=== PATIENT | female | born 1975 | race Caucasian/White ===

== ENCOUNTER 2017-12-20 16:30 | Inpatient (IN) | payer OTHER ==
--- OUTSIDE RECORDS SUMMARY | 2017-12-20 16:32 | XMS REPORT | Clinical Summary ---
:1975 Author Organization [facility] Address [address] [place] [address] Phone Care Team Providers Name Role Phone Unavailable Primary Care Provider Unavailable Allergies No Known Allergies Current Medications No known medications Active Problems Problem Noted Date Abnormal EKG 09/22/2017 Encounters Date Type Specialty Care Team Description 09/22/2017 Office Visit Sony Sanchez MD ([place]) Abnormal EKG after 12/19/2016 Family History Medical History Relation Name Comments No Known Problem Brother sherif Diabetes Father Hyperlipidemia Father Hypertension Father Kidney cancer Father Diabetes Mother Heart disease Mother Hypercalcemia Sister kimberly Hypertension Sister kimberly No Known Problem Sister mozelle No Known Problem Sister palomo No Known Problem Sister noreen Relation Name Status Comments Brother sherif Alive Father Alive Mother Sister kimberly Alive Sister mozelle Alive Sister palomo Alive Sister noreen Alive Social History Tobacco Use Types Packs/Day Years Used Date Never Smoker Smokeless Tobacco: Never Used Alcohol Use Drinks/Week oz/Week Comments No Sex Assigned at Date Recorded Not on file Last Filed Vital Signs Vital Sign Reading Time Taken Blood Pressure 132/78 09/22/2017 1:04 PM 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 Pulse 94 09/22/2017 1:04 PM 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 Temperature - - Respiratory Rate - - Oxygen Saturation 96% 09/22/2017 1:04 PM 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 Inhaled Oxygen Concentration - - Weight 85.7 kg (189 lb) 09/22/2017 1:04 PM 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 Height - - Body Mass Index - - Plan of Treatment Date Type Specialty Care Team Description 09/22/2018 [facility] Visit [facility] ([place]) [facility] [address] [address] [phone] Health Maintenance Due Date Last Done Comments INFLUENZA VACCINE 06/13/2018 Results ECG 12 lead (09/23/2017 9:26 AM)after 12/19/2016
[2017-12-20] MEDS ORDERED: MORPHINE 4 MG/ML SYR ONE (16:41)
[2017-12-20] MEDS ORDERED: ONDANSETRON 4 MG/2 ML VIAL ONE (16:41)
[2017-12-20] MEDS ORDERED: FENTANYL CITR 100 MCG/2 ML ONE (16:55)
--- NOTE | 2017-12-20 17:44 | RAD REPORT ---
EXAM DESCRIPTION: RAD - Lumbar Spine 3 Views - 12/20/2017 5:38 pm CLINICAL HISTORY: Back pain FINDINGS: The bones are osteoporotic. No fracture is seen. No dislocation is noted. Scoliosis involv es the thoracolumbar spine. The examination is somewhat limited secondary to difficulty with patient positioning
--- NOTE | 2017-12-20 17:46 | RAD REPORT ---
EXAM DESCRIPTION: RAD - Pelvis - 12/20/2017 5:38 pm CLINICAL HISTORY: Pelvic pain status post injury FINDINGS: A comminuted fracture involves the inter trochanteric right femur which involves the lesse r and greater trochanters. Marked angulation is present at the fracture site. No dislocation is seen
--- NOTE | 2017-12-20 17:47 | RAD REPORT ---
EXAM DESCRIPTION: RAD - Femur Right - 12/20/2017 5:38 pm CLINICAL HISTORY: Right leg pain FINDINGS: A comminuted fracture involves the inter trochanteric right femur which involves the lesse r and greater trochanters. Marked angulation is present at the fracture site. No dislocation is seen
--- NOTE | 2017-12-20 17:51 | ER ---
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 aj Patient reports pain to right hip, unable to bare weight.. Transition of care: patient was not received from another setting of care. Onset of symptoms was December 20, 2017. Care prior to arrival: None. 16:34 Method Of Arrival: EMS: [facility] 16:34 Acuity: MADYSON 3 aj Triage Assessment: 16:36 General: Appears in no apparent distress. uncomfortable, Behavior is crying. Pain: aj Complains of pain in right hip. Neuro: Level of Consciousness is awake, alert, obeys commands. Respiratory: Airway is patent Respiratory effort is even, unlabored, Respiratory pattern is regular, symmetrical. Derm: Skin is intact, is healthy with good turgor, Skin is pink, warm \T\ dry. normal. Musculoskeletal: Reports pain in right hip. 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 - Social history:: Smoking status: Patient/guardian denies using tobacco. - Family history:: not pertinent. - Hospitalizations: : No recent hospitalization is reported. Screenin:46 Abuse screen: Denies threats or abuse. Denies injuries from another. Nutritional aj screening: No deficits noted. Tuberculosis screening: No symptoms or risk factors identified. Fall Risk None identified. Assessment: 17:46 Reassessment: See triage. aj Vital Signs: 16:36 BP 126 / 83; Pulse 115; Resp 23; Temp 98.7; Pulse Ox 100% on R/A; Weight 84.82 kg; aj Height 5 ft. 2 in. (157.48 cm); Pain 9/10; 17:46 BP 142 / 89; Pulse 115; Resp 21; Pulse Ox 95% on R/A; aj 18:51 BP 110 / 79; Pulse 98; Resp 17; Pulse Ox 95% on R/A; aj 19:05 BP 118 / 78; Pulse 95; Resp 18; Temp 98.6; Pulse Ox 95% on R/A; Pain 0/10; ak1 16:36 Body Mass Index 34.20 (84.82 kg, 157.48 cm) aj ED Course: 16:34 Patient arrived in ED. aj 16:35 Triage completed. aj 16:36 Clark Hinojosa MD is Attending Physician. rn 16:36 Arm band placed on right wrist. Patient placed in an exam room, on a stretcher, on aj pulse oximetry. 16:50 Inserted saline lock: 22 gauge in left forearm, using aseptic technique. Blood aj collected. 17:36 XRAY Pelvis In Process Unspecified. EDMS 17:36 XRAY Femur RIGHT In Process Unspecified. EDMS 17:36 XRAY Lumbar Spine (3 Views) In Process Unspecified. EDMS 17:45 Kristy Whittaker, NEGRITA is Primary Nurse. aj 17:49 Diego Tripathi DO is Hospitalizing Provider. rn 18:52 Patient has correct armband on for positive identification. Bed in low position. aj 19:08 No provider procedures requiring assistance completed. Patient admitted, IV remains in ak1 place. Administered Medications: 16:50 Drug: morphine 4 mg Route: IVP; Site: left forearm; aj 18:53 Follow up: Response: No change in condition aj 16:50 Drug: Zofran 4 mg Route: IVP; Site: left forearm; aj 18:53 Follow up: Response: No adverse reaction aj 16:57 Drug: fentaNYL (PF) 25 mcg Route: IVP; Site: left forearm; aj 18:52 Follow up: Response: Pain is decreased aj Outcome: 17:50 Decision to Hospitalize by Provider. rn 19:07 Admitted to Tele accompanied by tech, via stretcher, with chart. ak1 19:07 Condition: stable 19:07 Instructed on the need for admit. 20:25 Patient left the ED. ak1 Signatures: Dispatcher [employer] EDMS Kristy Whittaker RN RN aj Nieto, Roman, MD MD rn Krenek, Amber, RN RN ak1 Corrections: (The following items were deleted from the chart) 16:38 16:36 BP 126 / 83; Pulse 115bpm; Resp 23bpm; Pulse Ox 96% RA; Temp 98.7F; 84.82 kg; aj Height 5 ft. 2 in.; BMI: 34.2; Pain 9/10; aj 17:47 17:46 BP 142 / 89; Pulse 122bpm; Resp 21bpm; Pulse Ox 95% RA; aj aj
--- NOTE | 2017-12-20 17:51 | EDPHYS ---
Physician Documentation [facility] Name: Glendy Pierson Age: 42 yrs Sex: Female : 1975 Arrival Date: 12/20/2017 Time: 16:34 Bed 8 Private MD: ED Physician Clark Hinojosa HPI: 12/20 16:44 This 42 yrs old Female presents to ER via EMS with complaints of Hip Pain. rn 16:44 The patient or guardian reports decreased range of motion, an injury, pain. that rn occurred at home, sustained from a fall, the right lower extremity is shortened, right leg is externally rotated. Onset: The symptoms/episode began/occurred just prior to arrival. Modifying factors: The symptoms are alleviated by nothing, the symptoms are aggravated by any movement. The patient has not experienced similar symptoms in the past. Reports in bathroom, normally ambulatory, fall, did not hit head, landed on buttocks, seems like right leg is hurting her. Not on medication/anticoagulation. No LOC. . 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 - Social history:: Smoking status: Patient/guardian denies using tobacco. - Family history:: not pertinent. - Hospitalizations: : No recent hospitalization is reported. ROS: 16:44 Constitutional: Negative for fever, chills, and weight loss, Eyes: Negative for injury, rn pain, redness, and discharge, Neck: Negative for injury, pain, and swelling, Cardiovascular: Negative for chest pain, palpitations, and edema, Respiratory: Negative for shortness of breath, cough, wheezing, and pleuritic chest pain, Abdomen/GI: Negative for abdominal pain, nausea, vomiting, diarrhea, and constipation, Back: Negative for injury and pain, MS/Extremity: Negative for deformity, Neuro: Negative for headache, weakness, numbness, tingling, and seizure. Exam: 16:44 Constitutional: This is a well developed, well nourished patient who is awake, alert, rn appears uncomfortable, bracing to right side of body. Head/Face: Normocephalic, atraumatic. Eyes: Pupils equal round and reactive to light, extra-ocular motions intact. Lids and lashes normal. Conjunctiva and sclera are non-icteric and not injected. Cornea within normal limits. Periorbital areas with no swelling, redness, or edema. Neck: Trachea midline, no thyromegaly or masses palpated, and no cervical lymphadenopathy. Supple, full range of motion without nuchal rigidity, or vertebral point tenderness. No Meningismus. Cardiovascular: Regular rate and rhythm with a normal S1 and S2. No gallops, murmurs, or rubs. Normal PMI, no JVD. No pulse deficits. Respiratory: Lungs have equal breath sounds bilaterally, clear to auscultation and percussion. No rales, rhonchi or wheezes noted. No increased work of breathing, no retractions or nasal flaring. Abdomen/GI: Soft, non-tender, with normal bowel sounds. No distension or tympany. No guarding or rebound. No evidence of tenderness throughout. Back: No spinal tenderness. MS/ Extremity: Pulses equal, no cyanosis. RLE with external rotation and shortened, pain with palpation and movement of right hip. Neuro: Awake, alert, at baseline mentally per mother, moves all 4 extremities and follows commands. Vital Signs: 16:36 BP 126 / 83; Pulse 115; Resp 23; Temp 98.7; Pulse Ox 100% on R/A; Weight 84.82 kg; aj Height 5 ft. 2 in. (157.48 cm); Pain 9/10; 17:46 BP 142 / 89; Pulse 115; Resp 21; Pulse Ox 95% on R/A; aj 18:51 BP 110 / 79; Pulse 98; Resp 17; Pulse Ox 95% on R/A; aj 19:05 BP 118 / 78; Pulse 95; Resp 18; Temp 98.6; Pulse Ox 95% on R/A; Pain 0/10; ak1 16:36 Body Mass Index 34.20 (84.82 kg, 157.48 cm) aj MDM: 16:36 Patient medically screened. rn 17:48 Differential diagnosis: hip fracture, intertrochanteric fracture, femoral neck rn fracture, femoral shaft fracture. Data reviewed: vital signs, nurses notes, radiologic studies, plain films, and as a result, I will admit patient. Counseling: I had a detailed discussion with the patient and/or guardian regarding: the historical points, exam findings, and any diagnostic results supporting the discharge/admit diagnosis, radiology results, the need for further work-up and treatment in the hospital. ED course: Consulted with Dr. Barreto, requested admit to hospitalist and will consult, get hip fixed. . 12/20 17:48 Order name: CBC with Diff rn 12/20 17:48 Order name: Basic Metabolic Panel rn 12/20 17:48 Order name: Protime (+inr) rn 12/20 17:48 Order name: Ptt, Activated rn 12/20 17:48 Order name: Test, Serum rn 12/20 19:58 Order name: T4 Free EDMS 12/20 16:41 Order name: XRAY Pelvis; Complete Time: 17:47 rn 12/20 16:41 Order name: XRAY Femur RIGHT; Complete Time: 17:47 rn 12/20 16:41 Order name: IV Start; Complete Time: 16:50 rn 12/20 16:42 Order name: XRAY Lumbar Spine (3 Views); Complete Time: 17:46 rn 12/20 19:58 Order name: Thyroid Stimulating Hormone EDMS Administered Medications: 16:50 Drug: morphine 4 mg Route: IVP; Site: left forearm; aj 18:53 Follow up: Response: No change in condition aj 16:50 Drug: Zofran 4 mg Route: IVP; Site: left forearm; aj 18:53 Follow up: Response: No adverse reaction aj 16:57 Drug: fentaNYL (PF) 25 mcg Route: IVP; Site: left forearm; aj 18:52 Follow up: Response: Pain is decreased aj Disposition: 12/20/17 17:50 Hospitalization ordered by Diego Tripathi for Inpatient Admission. Preliminary diagnosis is Displaced comminuted fracture of shaft of right femur. - Bed requested for Telemetry/MedSurg (Inpatient). - Status is Inpatient Admission. ak1 - Condition is Stable. - Problem is new. - Symptoms have improved. UTI on Admission? No Signatures: Dispatcher [employer] EDMS Kristy Whittaker RN RN aj Nieto, Roman, MD MD rn Krenek, Amber, RN RN ak1 Abbi Luke RN RN df
[2017-12-20] MEDS ORDERED: LORazepam 2 MG/ML VIAL IV PRN (18:07)
[2017-12-20] MEDS ORDERED: HYDROCODONE/APAP 7.5/325 MG TAB PO PRN (18:07)
[2017-12-20] MEDS ORDERED: ONDANSETRON 4 MG/2 ML VIAL IV PRN (18:07)
[2017-12-20] MEDS ORDERED: ACETAMINOPHEN 500 MG TAB PO PRN (18:07)
--- NOTE | 2017-12-20 18:18 | P.HP ---
Certification for Inpatient Patient admitted to: Inpatient With expected LOS: >2 Midnights Patient will require the following post-hospital care: Rehabilitation Practitioner: I am a practitioner with admitting privileges, knowledge of patient current condition, hospital course, and medical plan of care. Services: Services provided to patient in accordance with Admission requirements found in Title 42 Section 412.3 of the Code of Federal Regulations Patient History Date of Service: 12/20/17 Primary Care Provider: GIGI Balderrama(Dr. Mckinley) Reason for admission: Fall History of Present Illness: 42-year-old female presented emergency room after a fall. The patient has cerebral palsy, newer dermatitis and mental retardation. She is brought in by family after she fell in her bathroom. She landed on her right side. Patient had immediate pain. Patient is able to ambulate normally. She had difficulty walking. In the ER the patient was evaluated. She was found to have a comminuted right femur fracture of the inter trochanteric area involving the lesser and greater trochanter. Pain is controlled. Patient without any major medical problems for treatment. Orthopedics has been consulted. When I saw the patient ER, her sister was at bedside. The sister takes care of her. Patient does not take any medications. Allergies No Known Allergies Allergy (Uncoded 07/23/17 23:12) Unknown Home medications list reviewed: Yes - Past Medical/Surgical History -: Cerebral palsy -: Mental retardation -: Neurodermatitis Past Surgical History: Patient denies surgical history Psychosocial/ Personal History: The patient lives with her sister. She is fully dependent on her sister. - Family History Mother -: Diabetes - Social History Smoking Status: Never smoker Alcohol use: No CD- Drugs: No Caffeine use: Yes Place of Residence: Home Review of Systems General: As per HPI Eyes: Unremarkable ENT: Unremarkable Respiratory: Unremarkable Cardiovascular: Unremarkable Gastrointestinal: Unremarkable Genitourinary: Unremarkable Musculoskeletal: As per HPI Neurological: Unremarkable Lymphatics: Unremarkable Physical Examination - Physical Exam General: Alert, In no apparent distress, Cooperative, Other (Patient with mental retardation) HEENT: Atraumatic, Normocephalic, PERRLA, Other (Dry mucous membranes) Neck: Supple, No Thyromegaly Respiratory: Clear to auscultation bilaterally, Normal air movement Cardiovascular: Normal pulses, Regular rate/rhythm Gastrointestinal: Normal bowel sounds, Soft and benign, Non-distended, No tenderness, No masses, No rebound, No guarding Musculoskeletal: No warmth, Other (Pain to the right hip.) Neurological: Normal speech, Normal strength at 5/5 x4 extr, Normal tone, Other (Patient follows commands with direction from the sister), Abnormal affect ( Patient with mental retardation.) Assessment and Plan - Problems (Diagnosis) (1) Femur fracture Current Visit: Yes Status: Acute Plan: Comminuted intertrochanteric fracture involving lesser and greater trochanter.. Orthopedics has been consulted. Anticipate surgery tomorrow. Will continue with pain control. Patient slightly dehydrated. Will start IV fluids. May provide Marie catheter if needed. Otherwise will continue monitor closely. Patient able to ambulate prior to fracture. Patient would benefit with rehab if needed. Qualifiers: Encounter type: initial encounter Femur location: intertrochanteric Fracture type: closed Fracture alignment: displaced Laterality: right Qualified Code(s): S72.141A - Displaced intertrochanteric fracture of right femur, initial encounter for closed fracture (2) Cerebral palsy Current Visit: Yes Status: Chronic Plan: Overall stable. Will monitor closely. (3) Mental retardation Current Visit: Yes Status: Chronic Plan: Overall stable. She is fully dependent on her sister. Her plans to be at her side. (4) Dehydration Current Visit: Yes Status: Acute Plan: Patient appears dehydrated. Will start IV fluids. Will monitor closely Discharge Plan: Other (Inpatient rehab) Plan to discharge in: Greater than 2 days - Advance Directives Does patient have a Living Will: No Does patient have a Durable POA for Healthcare: No - Code Status/Comfort Care Code Status Assessed: Yes Time Spent Managing Pts Care (In Minutes): 55
[2017-12-20 19:31] LABS: Absolute Lymphocytes (CBC) 1.1 K/uL (0.7-4.9); Absolute Neutrophil 15.6 K/uL (1.8-8.0); Basophils % 0.3 % (0-1.3); Eosinophils % 0.1 % (0-4.4); Hematocrit 42.2 % (36.0-45.0); Lymphocytes % 6.2 % (15.3-44.8); MCH 29.8 pg (27.0-35.0); MCV 92.7 fL (80-100); MPV 9.2 fL (7.6-11.3); Monocytes % 5.4 % (3.3-12.3); RBC Red Blood Cell Count 4.55 M/uL (3.86-4.86)
[2017-12-20 19:35] LABS: BUN Blood Urea Nitrogen 22 mg/dL (6-20); Bicarbonate 26 mEq/L (21-31); Glucose Level 111 mg/dL (65-120); Potassium 3.6 mEq/L (3.6-5.0); Sodium Level 141 mEq/L (135-145)
[2017-12-20 19:57] LABS: Thyroid Stimulating Hormone 2.74 uIU/mL (0.34-5.60)
[2017-12-20 20:00] LABS: Protime INR 1.13
[2017-12-20 20:32] LABS: Blood Morphology Comment NOT SEEN (NOT SEEN); Platelet Estimate ADEQ; Urine White Blood Cell Casts OK
[2017-12-20] MEDS: NA CHLORIDE 0.9% 1,000 ML IV SCH (21:29)
[2017-12-20] MEDS: FENTANYL CITR 100 MCG/2 ML IV PRN (21:31)
[2017-12-21] MEDS: FENTANYL CITR 100 MCG/2 ML IV PRN (04:46)
[2017-12-21 04:57] LABS: Absolute Lymphocytes (CBC) 1.3 K/uL (0.7-4.9); Absolute Monocytes 0.9 K/uL (0.1-1.3); Absolute Neutrophil 6.5 K/uL (1.8-8.0); Basophils % 0.2 % (0-1.3); Hematocrit 33.2 % (36.0-45.0); MCH 30.4 pg (27.0-35.0); MPV 8.3 fL (7.6-11.3); Monocytes % 10.2 % (3.3-12.3); RBC Red Blood Cell Count 3.61 M/uL (3.86-4.86)
[2017-12-21] MEDS: NA CHLORIDE 0.9% 1,000 ML IV SCH (05:07)
[2017-12-21] MEDS: PANTOPRAZOLE 40MG TABLET PO SCH (05:10)
[2017-12-21 05:25] LABS: BUN Blood Urea Nitrogen 18 mg/dL (6-20); Bicarbonate 30 mEq/L (21-31); Glucose Level 113 mg/dL (65-120); Magnesium 1.8 mg/dL (1.8-2.5); Potassium 4.1 mEq/L (3.6-5.0); Sodium Level 144 mEq/L (135-145)
[2017-12-21 05:48] LABS: Urine Appearance CLOUDY; Urine Bilirubin NEGATIVE (NEG); Urine Blood 3+ (NEG); Urine Color YELLOW; Urine Glucose NEGATIVE (NEG); Urine Protein 2+ (NEG); Urine Specific Gravity >=1.030 (1.005-1.030); Urine pH 5.5 (5.0-7.0)
[2017-12-21 05:49] LABS: Urine Microscopic Reflex ORDER UMIC
[2017-12-21 06:13] LABS: Urine Bacteria <20 /HPF (<20); Urine Culture Reflex Order REFLEXED; Urine RBC >50 /HPF (NONE SEEN)
--- NOTE | 2017-12-21 07:55 | RAD REPORT ---
EXAM DESCRIPTION: RAD - Chest Single View - 12/21/2017 7:19 am CLINICAL HISTORY: Preop chest, hip fracture repair pending COMPARISON: July 2017 TECHNIQUE: AP portable chest image was obtained 0709 hours . FINDINGS: Lung volumes are low. No focal lung parenchymal process. No failure or volume overload. He art and vasculature are normal. No measurable pleural effusion and no pneumothorax. No gross bony abn ormality seen. No acute aortic findings suspected. IMPRESSION: No acute cardiopulmonary process.
[2017-12-21] MEDS ORDERED: CEFAZOLIN/SWI 1gm 1 GM/10 ML SYR IV SCH (08:30)
[2017-12-21] MEDS ORDERED: TRANEXAMIC ACID 1,000 MG in NA CHLORIDE 0.9% 50 ML IV SCH (08:30)
[2017-12-21] MEDS ORDERED: PROPOFOL 200 MG/20 ML VIAL IV ONE (09:12)
[2017-12-21] MEDS ORDERED: ROCURONIUM 50 MG/5 ML VIAL IV ONE (09:13)
[2017-12-21] MEDS ORDERED: FENTANYL CITR 100 MCG/2 ML ONE (09:13)
[2017-12-21] MEDS ORDERED: LIDOCAINE 2% MPF 5 ML VIAL ONE (09:14)
[2017-12-21] MEDS ORDERED: ONDANSETRON 4 MG/2 ML VIAL ONE ×2 (09:15→13:08)
[2017-12-21] MEDS ORDERED: MIDAZOLAM HCL 2 MG/2 ML INJ ONE (09:15)
[2017-12-21] MEDS ORDERED: Ringers Lactate 0 ML IV ONE (09:28)
--- NOTE | 2017-12-21 09:30 | P.PN ---
Subjective Date of Service: 12/21/17 Primary Care Provider: GIGI Balderrama(Dr. Mckinley) Chief Complaint: Fall Subjective: Doing well Physical Examination - Vital Signs Temperature: 98.2 F Blood Pressure: 114/50 Pulse: 91 Respirations: 16 Pulse Ox (%): 96 - Physical Exam General: Alert, Cooperative HEENT: Atraumatic Neck: Supple Respiratory: Clear to auscultation bilaterally, Normal air movement Cardiovascular: Normal pulses, Regular rate/rhythm Gastrointestinal: Normal bowel sounds, Soft and benign, Non-distended, No tenderness, No masses, No rebound, No guarding Musculoskeletal: No tenderness, No warmth - Studies Laboratory Data (last 24 hrs) 12/20/17 17:00: Sodium 141, Potassium 3.6, BUN 22 H, Creatinine 0.65, Glucose 111 12/20/17 17:00: WBC 17.7 H, Hgb 13.6, Hct 42.2, Plt Count 284 Medications List Reviewed: Yes Assessment & Plan - Problems (Diagnosis) (1) Femur fracture Onset Date: 12/21/17 Current Visit: Yes Status: Acute Plan: Comminuted intertrochanteric fracture involving lesser and greater trochanter. Case discussed with orthopedics. Surgery planned for today. Family desires to take patient home at discharge. Will see how she progresses with physical therapy tomorrow. Qualifiers: Encounter type: initial encounter Femur location: intertrochanteric Fracture type: closed Fracture alignment: displaced Laterality: right Qualified Code(s): S72.141A - Displaced intertrochanteric fracture of right femur, initial encounter for closed fracture (2) Cerebral palsy Onset Date: 12/21/17 Current Visit: Yes Status: Chronic Plan: Overall stable. Will monitor closely. (3) Mental retardation Onset Date: 12/21/17 Current Visit: Yes Status: Chronic Plan: Overall stable. She is fully dependent on her sister. Her plans to be at her side. (4) Dehydration Onset Date: 12/21/17 Current Visit: Yes Status: Acute Plan: Patient appears dehydrated. Continue with IV fluids. Discharge Plan: Home Plan to discharge in: Greater than 2 days Time Spent Managing Pts Care (In Minutes): 55
[2017-12-21] MEDS ORDERED: Ringers Lactate 1,000 ML IV ONE (09:32)
[2017-12-21] MEDS ORDERED: CEFAZOLIN/SWI 1gm 1 GM/10 ML SYR ONE (09:42)
[2017-12-21] MEDS: NACHLORIDE 0.45% 1,000 ML IV SCH ×2 (10:00→21:08)
[2017-12-21] MEDS ORDERED: Phenylephrine HCl 10 MG/ML 1 ML VIAL ONE (10:29)
[2017-12-21] MEDS: BUPIVACA 0.25%/EPI 0.0005%/PF 30 ML VIAL ONE ×2 (10:37→12:14)
--- NOTE | 2017-12-21 11:55 | CON ---
Reason For Consultation: Comminuted right intertrochanteric hip fracture. History Of Present Illness: This is a 42-year-old female with cerebral palsy, age 42, fell in her ba throom, suffering impact on the right hip and was brought to the [facility] mergency Department. Her x-ray has revealed a comminuted proximal femur fracture of the intertrochan teric subtrochanteric area of the right lower extremity. The patient has mental retardation and cere bral palsy and is largely uncooperative with directions. She is cared for at home by her family, [facility] includes 2 sisters that are RNs. She has been able to ambulate normally in the past and was unabl e to ambulate after her fall. She has been admitted and is at bedrest and comfortable with pain medi cations, although she has positioned the right lower extremity in external rotation with knee flexion , right foot under left thigh. Allergies: NO KNOWN ALLERGIES. Medications: None. Past Medical And Surgical History: Cerebral palsy, mental retardation, neurodermatitis. There has b een no previous surgical history. The patient lives with her sister and is fully dependent on her care. Family History: Mother has diabetes. Social History: The patient does not use alcohol or tobacco. She does use caffeine. Review of Systems: General: Well-nourished, well-developed 42-year-old female. Eyes: Without discharge or conjunctivitis. ENT: Unremarkable. Respiratory: Normal respiratory movement. No history of problems. Cardiovascular: Unremarkable. Gastrointestinal: Unremarkable. Genitourinary: Unremarkable. Musculoskeletal: As per HPI. Neurological: Unremarkable. Lymphatics: Unremarkable. Physical Examination: General: This is a well-nourished, well-developed 42-year-old female, somewhat somnolent with pain m edication recently given certainly in no apparent distress at the present time. HEENT: Atraumatic, normocephalic. Neck: Supple. Nontender to palpation. Respiratory: Normal respiratory movements. Clear to auscultation bilaterally. Cardiovascular: Normal pulses. Regular rate and rhythm. Gastrointestinal: Soft, nondistended. No tenderness. Normal bowel sounds. Musculoskeletal : The right foot has normal movement. Dorsal pedis pulses somewhat thready but pres ent. Capillary refill is brisk. The right lower extremity is positioned and external rotation with the right foot resting under the left thigh. Genital/Rectal: Exams are deferred. Assessment: Right proximal femur fracture, intertrochanteric with subtrochanteric extension. The fr acture is moderately comminuted. The patient is n.p.o. in preparation for surgery. Plan: The patient will be taken to surgery for intramedullary nail fixation, right proximal femur. The family is made aware of risks and benefits with all questions answered. They have elected to pro ceed with intramedullary nail fixation, right proximal femur intertrochanteric subtrochanteric fractu re. TENA/STEPHANY Voice ID: [id number] Report ID: [id number]
--- NOTE | 2017-12-21 12:29 | RAD REPORT ---
EXAM DESCRIPTION: RAD - Hip In Or - 12/21/2017 12:24 pm FINDINGS: Right hip fluoroscopy performed. Multiple portable C-arm views were obtained during fluoroscopic assisted placement of fracture fixati on hardware. No suspicious or unexpected finding.
[2017-12-21] MEDS ORDERED: KETOROLAC 30 MG/ML INJ ONE (12:57)
[2017-12-21] MEDS ORDERED: MEPERIDINE HCL 25 MG/0.5 ML ONE (13:05)
--- NOTE | 2017-12-21 13:08 | P.BOP ---
Preoperative diagnosis: RIGHT PROX FEMUR IT FRACTURE, COMMINUTED Postoperative diagnosis: SAME Primary procedure: IM NAIL FIXATION RIGHT HIP PROX. FEMUR IT FRACTURE Sales Support Rep: Ki Barreto Estimated blood loss: 150 mL Specimen: NONE Findings: COMMINUTED INTERTROCH FX RIGHT HIP Anesthesia: General Complications: None Drain(s): Urinary catheter Implants: AFFIXUS IM NAIL 130* [id number];LAG 10.5x90mm;AR SCREW 75mm Fluids & blood products: DISTAL INTERLOCK [id number]; INJ 0.25%MARCAINE 30mL w /EPI Transferred to: Recovery Room Condition: Good
[2017-12-21 13:14] LABS: Hematocrit 34.2 % (36.0-45.0)
[2017-12-21] MEDS ORDERED: HYDROCODONE/APAP 7.5/325 MG TAB PO PRN (13:50)
[2017-12-22 04:14] LABS: Absolute Lymphocytes (CBC) 1.6 K/uL (0.7-4.9); Absolute Monocytes 0.8 K/uL (0.1-1.3); Absolute Neutrophil 5.2 K/uL (1.8-8.0); Basophils % 0.3 % (0-1.3); Eosinophils % 0.3 % (0-4.4); Hematocrit 25.2 % (36.0-45.0); Lymphocytes % 21.5 % (15.3-44.8); MCH 30.6 pg (27.0-35.0); MCV 92.9 fL (80-100); MPV 8.2 fL (7.6-11.3); Monocytes % 9.8 % (3.3-12.3); RBC Red Blood Cell Count 2.71 M/uL (3.86-4.86)
[2017-12-22 05:03] LABS: BUN Blood Urea Nitrogen 14 mg/dL (6-20); Bicarbonate 30 mEq/L (21-31); Glucose Level 101 mg/dL (65-120); Magnesium 1.6 mg/dL (1.8-2.5); Potassium 4.1 mEq/L (3.6-5.0); Sodium Level 137 mEq/L (135-145)
[2017-12-22] MEDS ORDERED: MAGNESIUM SULFATE 1 gm IVPB 1 GM/100 ML BAG IV ONE (05:47)
[2017-12-22] MEDS: PANTOPRAZOLE 40MG TABLET PO SCH (06:16)
[2017-12-22] MEDS: TRAMADOL HCL 50 MG TAB PO PRN (06:16)
[2017-12-22] MEDS ORDERED: NA CHLORIDE 0.9% 500 ML IV ONE (06:52)
[2017-12-22] MEDS ORDERED: LACTULOSE 20 GM/30 ML UCUP PO PRN (06:57)
[2017-12-22] MEDS ORDERED: RIVAROXABAN 10 MG TABLET PO SCH (09:00)
[2017-12-22] MEDS ORDERED: NA CHLORIDE 0.9% 500 ML ONE (09:02)
[2017-12-22] MEDS: DOCUSATE NA 100 MG CAP PO SCH (09:06)
--- NOTE | 2017-12-22 09:31 | P.PN ---
Subjective Date of Service: 12/22/17 Primary Care Provider: GIGI Balderrama(Dr. Mckinley) Chief Complaint: Fall Subjective: Other (Patient with pain today. Pain medication is causing some hypotension. Patient does not appear in any distress. Sister at bedside. No significant shortness of breath, nausea or vomiting.) Physical Examination - Vital Signs Temperature: 98.2 F Blood Pressure: 85/50 Pulse: 98 Respirations: 16 Pulse Ox (%): 94 - Physical Exam General: Alert, In no apparent distress, Cooperative HEENT: Atraumatic Neck: Supple Respiratory: Clear to auscultation bilaterally, Normal air movement Cardiovascular: Normal pulses, Regular rate/rhythm Gastrointestinal: Normal bowel sounds, Soft and benign, Non-distended, No masses , No rebound, No guarding Musculoskeletal: No tenderness, No warmth, Other (No erythema noted to the right hip region. Bandage in place) Neurological: Normal speech, Normal strength at 5/5 x4 extr, Normal tone, Other (Patient with mental retardation) - Studies Medications List Reviewed: Yes Assessment & Plan - Problems (Diagnosis) (1) Femur fracture Onset Date: 12/21/17 Current Visit: Yes Status: Acute Plan: Comminuted intertrochanteric fracture involving lesser and greater trochanter. Orthopedic Surgery was done yesterday. Patient seems to have tolerated surgery well. Blood pressure low today likely from pain medication. Will decrease hydrocodone. Will provide fluid boluses this morning and monitor blood pressure closely. Hemoglobin was low. Will recheck. May need to give transfusion if hemoglobin less than 7.0. Will monitor for any changes. May need to hold physical therapy today until blood pressures are better controlled. Will discontinue Xarelto and give Lovenox instead. Will discuss with Orthopedic surgery Qualifiers: Encounter type: initial encounter Femur location: intertrochanteric Fracture type: closed Fracture alignment: displaced Laterality: right Qualified Code(s): S72.141A - Displaced intertrochanteric fracture of right femur, initial encounter for closed fracture (2) Cerebral palsy Onset Date: 12/21/17 Current Visit: Yes Status: Chronic Plan: Overall stable. Will monitor closely. (3) Mental retardation Onset Date: 12/21/17 Current Visit: Yes Status: Chronic Plan: Overall stable. She is fully dependent on her sister. Sister at bedside (4) Dehydration Onset Date: 12/21/17 Current Visit: Yes Status: Acute Plan: Patient appears dehydrated. Will provide fluid boluses today to maintain blood pressure. Will continue to monitor closely. Will try to maintain blood pressures above 100 systolic. Patient usually has blood pressures around 100/ 70. Patient also with anemia. Patient may require transfusion as stated above. Will continue with above plan of care. (5) Anemia Current Visit: Yes Status: Acute Plan: Patient with anemia. Patient postsurgery. Will check iron and B12 studies Will monitor hemoglobin. May need transfusion if hemoglobin less than 7.0. Anti coagulation medication adjusted. Qualifiers: Anemia type: other cause (6) Hypomagnesemia Current Visit: Yes Status: Acute Plan: Will monitor and replace appropriately. Replacement protocol in place. Discharge Plan: Home Plan to discharge in: 72 Hours Time Spent Managing Pts Care (In Minutes): 55
[2017-12-22] MEDS: NACHLORIDE 0.45% 1,000 ML IV SCH ×3 (12:40→21:48)
[2017-12-22 13:28] LABS: Ferritin 120.8 ng/ml (11.0-306.8)
[2017-12-22] MEDS: SOD FERRIC GLUC COMPLX/SUCROSE 125 MG in NA CHLORIDE 0.9% 100 ML IV SCH (16:00)
[2017-12-22] MEDS: ENOXAPARIN 40 MG/0.4 ML SQ SCH (16:17)
[2017-12-22] MEDS: HYDROCODONE/APAP 5/325 MG TAB PO PRN ×2 (17:09→23:02)
--- NOTE | 2017-12-22 21:06 | CON ---
Date of Consultation: 12/22/2017 Reason For Consult: Dehydration, hypertension. History Of Present Illness: Ms. Pierson is a 42-year-old female who has history of cerebral palsy, ment al retardation, who presented to [facility] on the 20 of December after she had a fall in her bathroom, moving back, on the right hip. She was noted to have comminuted proximal femur fracture of the intertrochanteric and subtrochanteric area of the right lower extremity. She underwent intramed ullary nail fixation of the right proximal femur and nephrology has been consulted for management of hypotension and dehydration. The patient has been started on IV fluids since the time of admission. Blood pressure has been running low on the lower side in the 80s. She remains on normal saline at 7 5 cc an hour. Past Medical History: Significant for history of mental retardation, cerebral palsy, and neurodermat itis. Past Surgical History: None. Most recently a right femur fracture and nail fixation. Social History: Lives with her sister. Dependent on ADLs. Review of Systems: Could not be obtained. Physical Examination: Vital Signs: At this time are showing temperature of 97.8, pulse rate of 98, respiratory rate of 16, and blood pressure 105/45. General: She appears in no acute distress. Lungs: Clear. Abdomen: Soft. Extremities: Right hip with incision noted. No evidence of any drainage or erythema or rash noted. Laboratory Data: Showing stable creatinine and electrolytes are also stable. Transferrin saturation is down to 7.6, and iron levels are also low. Current Medications: Include normal saline at 75 cc an hour. Tylenol as needed for pain. Fentanyl p.r.n., hydrocodone p.r.n., lorazepam, pantoprazole, and tramadol. Impression: 1.Hypotension secondary to pain and also from the pain medications. Pain medications need to be giv en cautiously. Also possibly would benefit from getting blood transfusion to improve her anemia. 2.Anemia secondary to blood loss and iron deficiency. We will go ahead and give her a few doses of Ferrlecit while she remains in the hospital to improve her anemia and to avoid blood transfusion. Plan: Overall, the patient is doing okay. I agree with continuing the fluids and minimize use of pa in medications as much as we can. Continue Physical therapy and Occupational therapy and ordered a F errlecit to maintain her anemia levels and to prevent further drop in her hemoglobin. Plan was discu ssed with the patient's family at bedside and as well as with Dr. Tripathi. RADHA/STEPHANY Voice ID: [id number] Report ID: [id number]
[2017-12-23 04:25] LABS: Absolute Lymphocytes (CBC) 1.7 K/uL (0.7-4.9); Absolute Monocytes 0.6 K/uL (0.1-1.3); Absolute Neutrophil 3.9 K/uL (1.8-8.0); Basophils % 0.4 % (0-1.3); Eosinophils % 0.3 % (0-4.4); Hematocrit 23.3 % (36.0-45.0); MCH 30.5 pg (27.0-35.0); MCV 92.3 fL (80-100); Monocytes % 9.9 % (3.3-12.3); RBC Red Blood Cell Count 2.53 M/uL (3.86-4.86)
[2017-12-23 04:46] LABS: BUN Blood Urea Nitrogen 7 mg/dL (6-20); Bicarbonate 30 mEq/L (21-31); Glucose Level 94 mg/dL (65-120); Magnesium 1.8 mg/dL (1.8-2.5); Potassium 3.9 mEq/L (3.6-5.0); Sodium Level 138 mEq/L (135-145)
[2017-12-23] MEDS: HYDROCODONE/APAP 5/325 MG TAB PO PRN ×2 (05:07→18:08)
[2017-12-23] MEDS: PANTOPRAZOLE 40MG TABLET PO SCH (05:07)
[2017-12-23] MEDS ORDERED: MAGNESIUM SULFATE 1 gm IVPB 1 GM/100 ML BAG IV ONE (05:27)
[2017-12-23] MEDS ORDERED: POTASSIUM 25 MEQ EFFERV TAB PO ONE (05:29)
[2017-12-23] MEDS: DOCUSATE NA 100 MG CAP PO SCH (08:44)
[2017-12-23] MEDS: SOD FERRIC GLUC COMPLX/SUCROSE 125 MG in NA CHLORIDE 0.9% 100 ML IV SCH (08:46)
[2017-12-23] MEDS ORDERED: CYANOCOBALAMIN 1000MCG/ML INJ IM SCH (09:00)
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
--- NOTE | 2017-12-23 10:26 | P.PN ---
Subjective Date of Service: 12/23/17 Primary Care Provider: GIGI Balderrama(Dr. Mckinley) Chief Complaint: Fall Subjective: Improving (Patient doing better this morning. Pain seems to be better controlled. Patient with mild pain to the right knee) Physical Examination - Vital Signs Temperature: 97.9 F Blood Pressure: 90/58 Pulse: 88 Respirations: 16 Pulse Ox (%): 95 - Physical Exam General: Alert, In no apparent distress HEENT: Atraumatic Neck: Supple Respiratory: Clear to auscultation bilaterally, Normal air movement Cardiovascular: Normal pulses, Regular rate/rhythm Gastrointestinal: Normal bowel sounds, Soft and benign, Non-distended Musculoskeletal: No tenderness, No warmth Integumentary: Other (Right knee appears slightly swollen but no significant erythema noted. Bandages in place to the right femur area) Neurological: Normal speech, Normal strength at 5/5 x4 extr, Normal tone - Studies Medications List Reviewed: Yes Assessment & Plan - Problems (Diagnosis) (1) Femur fracture Onset Date: 12/21/17 Current Visit: Yes Status: Acute Plan: Comminuted intertrochanteric fracture involving lesser and greater trochanter. Patient is postsurgery. Pain seems to be well controlled. Will continue with pain control medication. Patient was anemic yesterday. Patient found to be iron and B12 deficient. Patient now on IV iron infusion along with B12 supplementation. Will continue to monitor hemoglobin. If less than 7 will transfuse. Patient on DVT prophylaxis-Lovenox. Will discuss with orthopedics. Will have physical therapy evaluate ambulation. Social work to help with needs at home. Family wants to take patient home at discharge when ready. Patient may require 2-3 more days of therapy in the hospital. Qualifiers: Encounter type: initial encounter Femur location: intertrochanteric Fracture type: closed Fracture alignment: displaced Laterality: right Qualified Code(s): S72.141A - Displaced intertrochanteric fracture of right femur, initial encounter for closed fracture (2) Cerebral palsy Onset Date: 12/21/17 Current Visit: Yes Status: Chronic Plan: Overall stable. Will monitor closely. (3) Mental retardation Onset Date: 12/21/17 Current Visit: Yes Status: Chronic Plan: Overall stable. She is fully dependent on her sister. Sister at bedside (4) Dehydration Onset Date: 12/21/17 Current Visit: Yes Status: Acute Plan: Patient given IV fluid boluses yesterday. Will continue to monitor closely. Blood pressure stable. Continue with IV fluids. (5) Anemia Current Visit: Yes Status: Acute Plan: Patient with anemia. Patient postsurgery. Patient found to have iron and B12 deficiency. Patient started on iron infusion along with B12 supplementation. Will continue to monitor hemoglobin. Patient may require blood transfusion if hemoglobin less than 7.0. Patient on Lovenox for DVT prophylaxis. Sister reports family history of iron deficiency anemia. Qualifiers: Anemia type: other cause (6) Hypomagnesemia Current Visit: Yes Status: Acute Plan: Will monitor and replace appropriately. Replacement protocol in place. Discharge Plan: Home Plan to discharge in: 72 Hours Time Spent Managing Pts Care (In Minutes): 55
[2017-12-23 12:46] LABS: Hematocrit 27.6 % (36.0-45.0)
--- NOTE | 2017-12-23 14:10 | P.PN ---
Date of Service: 12/22/17 (POD#1) S: PATIENT RESTING IN BED. RESPONDS TO SISTER'S DIRECTIONS. NO ADVERSE PAIN BEHAVIOR. TOLERATES GENTLE EXAM. O: HYPOTENSIVE THIS AM. POSSIBLE REACTION TO NORCO TAB. PATIENT WAS TACHYCARDIC FOR 1-1/2 HR AFTER ARRIVAL IN PACU. HGB 11.1 POST OP, 8.3 THIS A.M. REPEAT HGB STABLE AT NOON. LITTLE BLOOD LOST AT SURGERY WITH 3 SMALL INCISIONS AND USE OF I.V. TRANEXAMIC ACID, 1 gm AT INCISION AND 2ND gm DURING CLOSURE. REHYDRATION LIKELY REASON FOR DROP IN HGB. NV EXAM INTACT. AQUACEL BANDAGES CLEAN DRY AND INTACT WITH MINIMAL DRAINAGE. KIMI'S SIGN NEGATIVE. PATIENT RESPONDS WITH AGITATION TO MOVEMENT OF RLE. LIMITING PT OPPORTUNITY TO WORK ON TRANSFERS. A: PATIENT MAKING SLOW PROGRESS. LIMITING PATIENT TO TOE-TOUCH ONLY WILL REQUIRE COOPERATION AND VIGOROUS USE OF LLE. P: FAMILY STRONGLY IN FAVOR OF H.H. CARE INSTEAD OF REHAB OR SNU. SISTER IS R.N. USED TO WORKING WITH C.P. PATIENTS. SHE IS LISTING NEEDS FOR HOME CARE ALREADY. CONTINUE TO MONITOR HGB.
--- NOTE | 2017-12-23 14:59 | RAD REPORT ---
EXAM DESCRIPTION: RAD - Knee Right 2 View - 12/23/2017 2:41 pm CLINICAL HISTORY: Knee pain, recent right femur surgery COMPARISON: None. FINDINGS: No fracture, dislocation or periosteal reaction.No measurable joint effusion. Slight narro wing of the lateral compartment noted with small marginal spurs. Surgical hardware is present in the distal femur. No associated acute bone or hardware finding. Skin claire are seen laterally from plac ement of the stabilization screw. IMPRESSION: Mild degenerative change lateral compartment of the knee. No acute bone or joint finding at the knee.
[2017-12-23] MEDS: ENOXAPARIN 40 MG/0.4 ML SQ SCH (17:23)
[2017-12-23] MEDS: NACHLORIDE 0.45% 1,000 ML IV SCH (17:24)
--- NOTE | 2017-12-23 18:41 | P.PN ---
Date of Service: 12/23/17 (POD#2) S: PATIENT RESTING IN BED ON RIGHT SIDE WITH A PILLOW BETWEEN THE KNEES. PATIENT HAS BEEN ABLE TO FOLLOW INSTRUCTIONS TO SOME DEGREE TO SIT FOR 15 MINUTES ON SIDE OF BED. O: MILDLY HYPOTENSIVE THIS AM. PAIN HAS BEEN CONTROLLED WITH 2 OR 3 NORCO 5/ DAY. HGB 7.7 THIS A.M. REPEAT HGB AT NOON 8.9. NV EXAM INTACT. AQUACEL BANDAGES CLEAN DRY AND INTACT WITH MINIMAL DRAINAGE. KIMI'S SIGN NEGATIVE. PATIENT ALLOWS EXAMINATION OF RIGHT KNEE AND ANKLE. RIGHT ANKLE HAS NO SIGNIFICANT SWELLING AND NO TENDERNESS TO PALPATION. PATIENT TOLERATES ACTIVE AND PASSIVE RANGE OF MOTION FOR THE ANKLE. EXAM OF THE RIGHT KNEE SHOWS NO PALPABLE EFFUSION , PATELLA IS STABLE, LIGAMENTS STABLE TO STRESS TESTING. FEMUR FILMS DID NOT ILLUSTRATE JOINT SPACE OR TIBIAL PLATEAU. WILL REQUEST AP AND LATERAL VIEWS OFTHE RIGHT KNEE. A: PATIENT STILL MAKING SLOW PROGRESS. PAIN CONTROL IS IMPROVING AND SHOULD IMPROVE DRAMATICALLY DAY BY DAY. PATIENT IS DEMONSTRATING ABILITY TO FOLLOW INSTRUCTIONS ON OCCASION THAT MAY HELP WITH TRANSFERS P: FAMILY STILL STRONGLY IN FAVOR OF H.H. CARE. CONTINUE TO MONITOR HGB.
--- NOTE | 2017-12-23 21:59 | P.PN ---
Date of Service: 12/23/17 Vital Signs Temp Pulse Resp BP Pulse Ox 97.9 F 98 H 18 111/61 94 12/23/17 20:00 12/23/17 20:00 12/23/17 20:00 12/23/17 20:00 12/23/17 20:00 Medications Acetaminophen (Tylenol -Extra Strength) 500 mg PO Q4HP PRN PRN Reason: [id number] Stop: 01/19/18 18:08 Last Admin: 12/23/17 11:01 Dose: 500 mg Hydrocodone Bitart/Acetaminophen (Vandiver 5/325) 1 tab PO Q6H PRN PRN Reason: PAIN MODERATE TO SEVERE Stop: 01/21/18 06:52 Last Admin: 12/23/17 18:08 Dose: 1 tab Cholecalciferol (Vitamin D 5,000 Iu Cap) 5,000 unit PO DAILY [facility] Stop: 01/23/18 09:01 Cyanocobalamin (B12 Injection) 1,000 mcg IM Q7D@0900 [facility] Stop: 01/22/18 09:01 Last Admin: 12/23/17 08:44 Dose: 1,000 mcg Cyanocobalamin (B12 Injection) 1,000 mcg SQ DAILY [facility] Stop: 12/27/17 09:01 Docusate Sodium (Colace Cap) 100 mg PO DAILY [facility] Stop: 01/21/18 09:01 Last Admin: 12/23/17 08:44 Dose: 100 mg Enoxaparin Sodium (Lovenox 40 Mg Inj) 40 mg SQ DAILY 5 PM [facility] Stop: 01/21/18 17:01 Last Admin: 12/23/17 17:23 Dose: 40 mg Fentanyl Citrate (Sublimaze) 25 mcg IV Q4H PRN PRN Reason: PAIN SEVERE Stop: 01/19/18 18:08 Last Admin: 12/21/17 04:46 Dose: 25 mcg Sodium Chloride (Sodium Chloride 0.45%) 1,000 mls @ 75 mls/hr IV .[id number] [facility] Stop: 01/20/18 10:01 Last Admin: 12/23/17 17:24 Dose: 1,000 mls Ferric Sodium Gluconate Complex 125 mg/ Sodium Chloride 110 mls @ 100 mls/hr IV DAILY [facility] Stop: 12/29/17 10:05 Last Admin: 12/23/17 08:46 Dose: 110 mls Lactulose (Cephulac) 10 gm PO BID PRN PRN Reason: CONSTIPATION Stop: 01/21/18 06:58 Lorazepam (Ativan) 0.25 mg IV TID PRN PRN Reason: AGITATION/ANXIETY Stop: 01/19/18 21:01 Ondansetron HCl (Zofran) 4 mg IV Q6HP PRN PRN Reason: NAUSEA / VOMITING Stop: 01/19/18 18:08 Pantoprazole Sodium (Protonix Tab) 40 mg PO DAILYAC [facility] Stop: 01/20/18 06:31 Last Admin: 12/23/17 05:07 Dose: 40 mg Sodium Chloride (Normal Saline Flush) 10 ml IV BID [facility] Stop: 01/19/18 21:01 Last Admin: 12/23/17 20:50 Dose: Not Given Tramadol HCl (Ultram) 50 mg PO TID PRN PRN Reason: PAIN MILD Stop: 01/19/18 18:08 Last Admin: 12/22/17 06:16 Dose: 50 mg Assessment/ Plan: Nephrology. CPS stable without CP or SOB. No acute events overnight. Vitals, medications, blood work and imaging reviewed in the chart. NAD. Obese. MMM. Neck supple. CTA. RRR. Soft Abd. No C/C/E. No rash. AAO. Normal speech. A/ Right femur fx with acute pain. Hypotension. Dehydration. Iron deficiency anemia. B12 Deficiency. Hypocalcemia. Hypomagnesemia. Cerebral Palsy. P/ continue current POC and Medications. Agree with IVF. Agree with IV iron. Start B12. Start Vitamin D. Pain medications prn. AM labs. Daily weight.
[2017-12-23] MEDS: CYANOCOBALAMIN 1000MCG/ML INJ SQ SCH (22:00)
[2017-12-24] MEDS: HYDROCODONE/APAP 5/325 MG TAB PO PRN ×4 (01:52→22:19)
[2017-12-24] MEDS: NACHLORIDE 0.45% 1,000 ML IV SCH ×2 (04:40→13:39)
[2017-12-24] MEDS: PANTOPRAZOLE 40MG TABLET PO SCH (06:11)
[2017-12-24 07:13] LABS: BUN Blood Urea Nitrogen 8 mg/dL (6-20); Bicarbonate 31 mEq/L (21-31); Folic Acid, (Folate) 7.3 ng/ml (>5.21); Glucose Level 90 mg/dL (65-120); Magnesium 1.9 mg/dL (1.8-2.5); Potassium 4.1 mEq/L (3.6-5.0); Sodium Level 140 mEq/L (135-145)
[2017-12-24] MEDS: CYANOCOBALAMIN 1000MCG/ML INJ SQ SCH (07:54)
[2017-12-24] MEDS: DOCUSATE NA 100 MG CAP PO SCH (07:55)
[2017-12-24] MEDS: VITAMIN D 5,000 UNIT CAP PO SCH (07:55)
[2017-12-24 08:35] LABS: Absolute Lymphocytes (CBC) 1.6 K/uL (0.7-4.9); Absolute Monocytes 0.5 K/uL (0.1-1.3); Absolute Neutrophil 4.6 K/uL (1.8-8.0); Basophils % 0.5 % (0-1.3); Eosinophils % 1.6 % (0-4.4); Hematocrit 26.5 % (36.0-45.0); Lymphocytes % 23.7 % (15.3-44.8); MCH 30.6 pg (27.0-35.0); MCV 94.4 fL (80-100); MPV 8.1 fL (7.6-11.3); Monocytes % 7.1 % (3.3-12.3); RBC Red Blood Cell Count 2.81 M/uL (3.86-4.86)
[2017-12-24] MEDS: SOD FERRIC GLUC COMPLX/SUCROSE 125 MG in NA CHLORIDE 0.9% 100 ML IV SCH (09:45)
--- NOTE | 2017-12-24 13:36 | P.PN ---
Subjective Date of Service: 12/24/17 Primary Care Provider: GIGI Balderrama(Dr. Mckinley) Chief Complaint: Fall Subjective: Doing well Physical Examination - Vital Signs Temperature: 98.4 F Blood Pressure: 114/65 Pulse: 97 Respirations: 16 Pulse Ox (%): 98 - Physical Exam General: Alert, In no apparent distress, Cooperative HEENT: Atraumatic Neck: Supple Respiratory: Clear to auscultation bilaterally, Normal air movement Cardiovascular: Normal pulses, Regular rate/rhythm Gastrointestinal: Normal bowel sounds, No tenderness, No masses, No rebound, No guarding Musculoskeletal: No erythema, No tenderness, No warmth Integumentary: No tenderness/swelling, No erythema, No warmth, No cyanosis Neurological: Normal speech, Normal strength at 5/5 x4 extr, Normal tone - Studies Medications List Reviewed: Yes Assessment & Plan - Problems (Diagnosis) (1) Femur fracture Onset Date: 12/21/17 Current Visit: Yes Status: Acute Plan: Comminuted intertrochanteric fracture involving lesser and greater trochanter. Patient is postsurgery. Pain seems to be well controlled. Will continue with pain control medication. Anemia has remained stable. Will continue with iron infusion along with B12 supplementation. Will continue to work with physical therapy. Once physical therapy determines that the patient can go home with home health and physical therapy then she may be able to be discharge. Her sisters plan to take care of her at home. Anticipate 2-3 more days of therapy in the hospital. Qualifiers: Encounter type: initial encounter Femur location: intertrochanteric Fracture type: closed Fracture alignment: displaced Laterality: right Qualified Code(s): S72.141A - Displaced intertrochanteric fracture of right femur, initial encounter for closed fracture (2) Cerebral palsy Onset Date: 12/21/17 Current Visit: Yes Status: Chronic Plan: Overall stable. Will monitor closely. (3) Mental retardation Onset Date: 12/21/17 Current Visit: Yes Status: Chronic Plan: Overall stable. She is fully dependent on her sister. Sister at bedside (4) Dehydration Onset Date: 12/21/17 Current Visit: Yes Status: Acute Plan: Patient given IV fluid boluses yesterday. Will continue to monitor closely. Blood pressure stable. Continue with IV fluids. (5) Anemia Current Visit: Yes Status: Acute Plan: Patient with anemia. Patient postsurgery. Patient found to have iron and B12 deficiency. Will continue with iron infusion and B12 supplementation. Will continue to monitor hemoglobin. Patient may require blood transfusion if hemoglobin less than 7.0. Patient on Lovenox for DVT prophylaxis. Sister reports family history of iron deficiency anemia. Qualifiers: Anemia type: other cause (6) Hypomagnesemia Current Visit: Yes Status: Acute Plan: Will monitor and replace appropriately. Replacement protocol in place. Discharge Plan: Home Plan to discharge in: 48 Hours Time Spent Managing Pts Care (In Minutes): 55
[2017-12-24] MEDS: TRAMADOL HCL 50 MG TAB PO PRN (16:12)
[2017-12-24] MEDS: ENOXAPARIN 40 MG/0.4 ML SQ SCH (16:12)
--- NOTE | 2017-12-24 19:37 | P.PN ---
Date of Service: 12/24/17 Vital Signs Temp Pulse Resp BP Pulse Ox 97.3 F 101 H 17 100/66 97 12/24/17 16:00 12/24/17 16:00 12/24/17 16:00 12/24/17 16:00 12/24/17 16:00 Medications Acetaminophen (Tylenol -Extra Strength) 500 mg PO Q4HP PRN PRN Reason: [id number] Stop: 01/19/18 18:08 Last Admin: 12/23/17 11:01 Dose: 500 mg Hydrocodone Bitart/Acetaminophen ([place] 5/325) 1 tab PO Q6H PRN PRN Reason: PAIN MODERATE TO SEVERE Stop: 01/21/18 06:52 Last Admin: 12/24/17 13:35 Dose: 1 tab Cholecalciferol (Vitamin D 5,000 Iu Cap) 5,000 unit PO DAILY [facility] Stop: 01/23/18 09:01 Last Admin: 12/24/17 07:55 Dose: 5,000 unit Cyanocobalamin (B12 Injection) 1,000 mcg IM Q7D@0900 [facility] Stop: 01/22/18 09:01 Last Admin: 12/23/17 08:44 Dose: 1,000 mcg Cyanocobalamin (B12 Injection) 1,000 mcg SQ DAILY [facility] Stop: 12/27/17 09:01 Last Admin: 12/24/17 07:54 Dose: 1,000 mcg Docusate Sodium (Colace Cap) 100 mg PO DAILY [facility] Stop: 01/21/18 09:01 Last Admin: 12/24/17 07:55 Dose: 100 mg Enoxaparin Sodium (Lovenox 40 Mg Inj) 40 mg SQ DAILY 5 PM [facility] Stop: 01/21/18 17:01 Last Admin: 12/24/17 16:12 Dose: 40 mg Fentanyl Citrate (Sublimaze) 25 mcg IV Q4H PRN PRN Reason: PAIN SEVERE Stop: 01/19/18 18:08 Last Admin: 12/21/17 04:46 Dose: 25 mcg Sodium Chloride (Sodium Chloride 0.45%) 1,000 mls @ 75 mls/hr IV .[id number] [facility] Stop: 01/20/18 10:01 Last Admin: 12/24/17 13:39 Dose: 1,000 mls Ferric Sodium Gluconate Complex 125 mg/ Sodium Chloride 110 mls @ 100 mls/hr IV DAILY [facility] Stop: 12/29/17 10:05 Last Admin: 12/24/17 09:45 Dose: 110 mls Lactulose (Cephulac) 10 gm PO BID PRN PRN Reason: CONSTIPATION Stop: 01/21/18 06:58 Lorazepam (Ativan) 0.25 mg IV TID PRN PRN Reason: AGITATION/ANXIETY Stop: 01/19/18 21:01 Ondansetron HCl (Zofran) 4 mg IV Q6HP PRN PRN Reason: NAUSEA / VOMITING Stop: 01/19/18 18:08 Pantoprazole Sodium (Protonix Tab) 40 mg PO DAILYAC [facility] Stop: 01/20/18 06:31 Last Admin: 12/24/17 06:11 Dose: 40 mg Sodium Chloride (Normal Saline Flush) 10 ml IV BID [facility] Stop: 01/19/18 21:01 Last Admin: 12/24/17 07:55 Dose: 10 ml Tramadol HCl (Ultram) 50 mg PO TID PRN PRN Reason: PAIN MILD Stop: 01/19/18 18:08 Last Admin: 12/24/17 16:12 Dose: 50 mg Assessment/ Plan: Nephrology. CPS stable without CP or SOB. No acute events overnight. Severe, persistent knee pain. Vitals, medications, blood work and imaging reviewed in the chart. NAD. Obese. MMM. Neck supple. CTA. RRR. Soft Abd. No C/C/E. No rash. AAO. Normal speech. A/ Right femur fx with acute pain. Hypotension. Dehydration. Iron deficiency anemia. B12 Deficiency. Hypocalcemia. Hypomagnesemia. Cerebral Palsy. P/ continue current POC and Medications. Agree with IVF. Agree with IV iron. Pain medications prn. AM labs. Daily weight.
[2017-12-25] MEDS: FENTANYL CITR 100 MCG/2 ML IV PRN (02:50)
[2017-12-25] MEDS: NACHLORIDE 0.45% 1,000 ML IV SCH ×3 (05:00→18:16)
[2017-12-25] MEDS: HYDROCODONE/APAP 5/325 MG TAB PO PRN ×3 (06:12→20:30)
[2017-12-25] MEDS: PANTOPRAZOLE 40MG TABLET PO SCH (06:12)
[2017-12-25] MEDS: VITAMIN D 5,000 UNIT CAP PO SCH (09:33)
[2017-12-25] MEDS: SOD FERRIC GLUC COMPLX/SUCROSE 125 MG in NA CHLORIDE 0.9% 100 ML IV SCH (09:33)
[2017-12-25] MEDS: DOCUSATE NA 100 MG CAP PO SCH (09:33)
[2017-12-25] MEDS: CYANOCOBALAMIN 1000MCG/ML INJ SQ SCH (09:35)
--- NOTE | 2017-12-25 11:08 | P.PN ---
Date of Service: 12/24/17 (POD#3) S: PATIENT IN BED IN RECLINING CHAIR POSITION. GRIMACING AND GRASPING AT RIGHT KNEE INFRAPATELLAR TENDON AREA TO INDICATE SIGNIFICANT DISCOMFORT. SISTER DESCRIBES DIFFICULTY THROUGH NIGHT. PATIENT HAS BEEN ABLE TO FOLLOW INSTRUCTIONS TO SIT FOR 30 MINUTES ON SIDE OF BED BEFORE DECLARING FATIGUE/ DISCOMFORT TO RESUME RECLINING. O: PAIN HAS BEEN SUBJECTIVELY MORE DIFFICULT TO CONTROL WITH NORCO 5. HGB 7.7 YESTERDAY. REPEATED AT NOON 8.9., NEW VALUE STABLE AT 8.6 THHIS A.M. NV EXAM INTACT. AQUACEL BANDAGES CLEAN DRY AND INTACT WITH MINIMAL DRAINAGE. KIMI'S SIGN NEGATIVE. PATIENT ALLOWS EXAMINATION OF RIGHT KNEE AND ANKLE. RIGHT ANKLE AGAIN HAVE NO SIGNIFICANT SWELLING OR NO TENDERNESS TO PALPATION. PATIENT TOLERATES ACTIVE AND PASSIVE RANGE OF MOTION FOR THE ANKLE. THE RIGHT KNEE SHOWS NO PALPABLE EFFUSION, PATELLA IS STABLE, LIGAMENTS STABLE TO STRESS TESTING. FEMUR FILMS, AP AND LATERAL VIEWS OF THE RIGHT KNEE DONE YESTERDAY, SHOWED NO BONY ABNORMALITY NO FX OR DISLOC.. A: PATIENT STILL MAKING SLOW PROGRESS. PAIN CONTROL IS IMPROVINGWITH SITTING TOLERENCE ROUGHLY INCREASING BY DOUBLING EACH DAY. PATIENT CONTINUES TO DEMONSTRATE ABILITY TO FOLLOW INSTRUCTIONS TO HELP WITH TRANSFER EFFORTS. P: FAMILY STILL IN FAVOR OF H.H. CARE, ESSENTIALLY MAKING HOSPITALIZATION HOSTAGE TO ACCOMPLISH AT LEAST TRANSFER CAPABILITY. CONTINUE MOBILIZE TOLERATED.
--- NOTE | 2017-12-25 11:22 | P.PN ---
Date of Service: 12/25/17 (POD#4) S: PATIENT IN [facility] JUST HAVING ACCOMPLISHED 1ST TRANSFER. HEARD MUCH ADO AND OUTCRIES, BUT PATIENT CALMED AND SITTING IN CHAIR UPON ENTRY. SISTER INDICATES DISCOMFORT WAS AN ISSUE THROUGH NIGHT WITH PATIENT RUBBING THIGH AND GRASPING AT RIGHT KNEE TO INDICATE HER DISCOMFORT. PATIENT HAS BEEN SITTING ON EDGE OF BED FOR 60 MINUTES. O: PAIN HAS BEEN A STEADY ISSUE FOR 48 HRS. KIMI'S SIGN + TODAY WITH PALPABLE CORD AND SOME REACTION TO COMPRESSION RIGHT MEDIAL CALF. STILL NO ABNORMALITY TO RIGHT KNEE EXAMINATION. THE RIGHT KNEE SHOWS NO PALPABLE EFFUSION, PATELLA IS STABLE, LIGAMENTS STABLE TO STRESS TESTING. EXAM WOULD SUGGEST REFERRED PAIN FROM HIP OR NEUROGENIC PAIN OF SCIATICA. A: PATIENT STILL MAKING SLOW PROGRESS. ADDITIONAL X-RAYS INDICATED TO CONFIRM NO SIGNIFICANT CHANGES IN FIXATION WITH MOBILIZATION EFFORTS. DOPPLER VENOUS STUDIES TO DETERMINE IF DVT IS AN ISSUE. P: AP PELVIS AND RIGHT FEMUR FILMS TO ASSESS FOR CHANGE SINCE SURGERY. DOPPLER STUDIES FOR BOTH LOWER EXT. CONTINUE MOBILIZATION EFFORTS.
[2017-12-25] MEDS: GABAPENTIN 300 MG CAP PO SCH ×2 (14:04→20:31)
--- NOTE | 2017-12-25 14:32 | RAD REPORT ---
EXAM DESCRIPTION: VAS - Extrem Venous W Compress Pietro - 12/25/2017 2:01 pm CLINICAL HISTORY: Leg pain and swelling, positive Padma's sign COMPARISON: None. TECHNIQUE: Real-time sonographic evaluation of the bilateral lower extremity deep venous systems was performed. FINDINGS: Normal compressibility, flow augmentation, phasic flow and spontaneous flow are identified in the left and right lower extremity deep venous systems. No intraluminal filling defects seen. IMPRESSION: No DVT in either lower extremity.
--- NOTE | 2017-12-25 14:40 | RAD REPORT ---
EXAM DESCRIPTION: RAD - Hip Bilateral With Pelvis - 12/25/2017 1:58 pm CLINICAL HISTORY: Pelvic and right hip pain, recent right femur fracture repair COMPARISON: Intraoperative fluoroscopic images December 21 TECHNIQUE: AP view of the pelvis and hip joints was obtained with frogleg views of each hip joint. FINDINGS: No fracture of the bony pelvis. No new bony pelvic finding. SI joints, pubic symphysis and hip joints show no new or suspicious finding. No proximal femur acute finding on the left. Surgical hardware is in place from prior right femur fracture repair. No new femur fracture seen. No fracture of the surgical hardware. No retrograde migration of the femoral neck hardware suspected. Fe moral neck- shaft angle is not clearly different from the prior study. No clear change in alignment o r positioning of the fracture fragments since the intraoperative examination. Comparison with the int raoperative examination is limited. There were no immediate postsurgical images available for compari son. There is slightly different positioning between the current examination in the intraoperative pr ojections. IMPRESSION: No fracture, migration or changes to the surgical hardware identifiable. No new fracture of the proximal femur or pelvis. Well comparison to intraoperative imaging is limited , no gross change in alignment or position of the femur fracture fragments.
--- NOTE | 2017-12-25 14:42 | RAD REPORT ---
EXAM DESCRIPTION: RAD - Femur Right - 12/25/2017 1:58 pm CLINICAL HISTORY: Pelvic and hip pain, recent fracture repair COMPARISON: Pelvis and hip films same date, intraoperative portable imaging FINDINGS: The femoral head, neck and intertrochanteric findings and proximal hardware findings are d etailed on the pelvis and hip report. The shaft and distal right femur show no fracture or new bone finding. Intramedullary daxa shows no un expected finding. Postsurgical changes are seen in the soft tissues. No suspicious soft tissue findin g. No air or foreign body in the soft tissues. IMPRESSION: Shaft and distal right femur show no new or suspicious findings. Adjacent soft tissues a lso without suspicious finding. The proximal hardware along with the femoral head, neck and intertrochanteric region are detailed on the separate pelvis and bilateral hip report.
--- NOTE | 2017-12-25 14:51 | PN ---
Date of Progress Note: 12/25/2017 Subjective: The patient seen and examined, chart reviewed, and case discussed with RN. Sister at e bedside. No acute events overnight. The patient complaining of knee pain. Review of Systems: Negative except as above. Medications: Reviewed. Physical Examination: Vital Signs: Temperature 97.4, heart rate 81, blood pressure 100/59, respirations 18, and O2 98% on room air. General: Awake, alert, oriented. Some mild distress due to pain. Morbidly obese female. BMI 35. CV: S1, S2. No murmurs. Regular rate and rhythm. Peripheral pulses present. Respiratory: Moving air well bilaterally. No wheezing. Abdomen: Soft, nontender, nondistended. Positive bowel sounds. Extremities: No clubbing, cyanosis, edema. Musculoskeletal: right hip incision clean, dry, intact. Neurologic: Nonfocal. Laboratory Data: Sodium 140, potassium 4.1, chloride 106, CO2 31, BUN 8, creatinine 0.4, glucose 90, calcium 8.5, and magnesium 1.9. WBC 6.8, H and H 8.6, 26.5. That is from 12/24/2017. Urine cultur e shows no growth. Assessment: A 42-year-old female with; 1.Right femur fracture, comminuted intertrochanteric fracture involving lesser and greater trochante r, status post ORIF, tolerated procedure well. Continue physical therapy. Overall plan is to discha rge home after continued therapy at the hospital. 2.Cerebral palsy, stable. 3.Intellectual disability, fully dependent on her sister. 4.Dehydration, acute, improved with IV fluids. Blood pressure is stable. 5.Anemia, likely postoperative. The patient does have iron and B12 deficiency. The patient is rece iving iron infusion and B12 supplementation. We will monitor H and H. 6.Hypomagnesemia, replace and monitor. 7.Obesity, body mass index 35. 8.Gastrointestinal and deep venous thrombosis prophylaxis with PPI and Lovenox. SA/MODL Voice ID: [id number] Report ID: [id number]
[2017-12-25] MEDS: ENOXAPARIN 40 MG/0.4 ML SQ SCH (18:15)
--- NOTE | 2017-12-25 18:42 | PN ---
Date of Progress Note: 12/25/2017 Subjective: Patient is seen at the bedside. The patient is underlying workup for acute right extrem ity pain, x-ray, and ultrasound. Doppler of the extremity is pending. The patient's history is take n from looking at the chart and from the sister who is at the bedside. Review of Systems: Unable to obtain. Objective: Vital Signs: Blood pressure 114/72, pulse 93, temperature 98.1. Input and output; patie nt is 3595 in and 4300 out. General: No acute distress. Cognitive deficit noted. Heart: Regular rate and rhythm. No murmurs, rubs, or gallops. Lungs: Clear to auscultation bilaterally. Abdomen: Soft, nontender, nondistended. Sluggish bowel sounds. Extremities: Postsurgical changes noted of the right upper extremity. There is trace to 1+ edema. Laboratory Data: Sodium 140, potassium 4.1, chloride 106, CO2 31, BUN 8, creatinine 0.4, glucose 90, calcium 8.5. CBC showing hemoglobin 8.6, hematocrit 26.5. Serum chemistry was showing iron saturat ion of 7.6%. Current Medications: Reviewed. The patient is on half NS at 75 mL/h, acetaminophen, vitamin D3 5000 units daily, B12 injections and docusate, Lovenox prophylactic dose, fentanyl as needed, gabapentin, hydrocodone, lactulose, lorazepam, Zofran, Protonix. Impression: 1.Volume depletion. 2.Right hip fracture. 3.Acute right lower extremity pain. 4.Iron deficiency anemia, possibly in the setting of blood loss from fracture. 5.Underlying cognitive deficits secondary to cerebral palsy. Plan: Continue with IV fluids. Iron replenishment can be considered if transfusion not undertaken. Continue to monitor serial H and H. If sodium does drop in the setting of use of half-normal saline can switch over temporally to normal saline. However, sodium balance appears to be appropriate. We will continue to follow. /STEPHANY Voice ID: [id number] Report ID: [id number]
[2017-12-26 05:27] LABS: BUN Blood Urea Nitrogen 10 mg/dL (6-20); Bicarbonate 32 mEq/L (21-31); Glucose Level 94 mg/dL (65-120); Magnesium 1.7 mg/dL (1.8-2.5); Potassium 4.2 mEq/L (3.6-5.0); Sodium Level 137 mEq/L (135-145)
[2017-12-26] MEDS: PANTOPRAZOLE 40MG TABLET PO SCH (05:42)
[2017-12-26] MEDS: NACHLORIDE 0.45% 1,000 ML IV SCH ×2 (06:26→10:00)
[2017-12-26] MEDS ORDERED: MAGNESIUM SULFATE 1 gm IVPB 1 GM/100 ML BAG IV ONE (07:00)
[2017-12-26] MEDS: HYDROCODONE/APAP 5/325 MG TAB PO PRN ×3 (08:26→22:22)
[2017-12-26] MEDS: VITAMIN D 5,000 UNIT CAP PO SCH (08:26)
[2017-12-26] MEDS: GABAPENTIN 300 MG CAP PO SCH ×3 (08:26→21:12)
[2017-12-26] MEDS: DOCUSATE NA 100 MG CAP PO SCH (08:26)
[2017-12-26] MEDS: CYANOCOBALAMIN 1000MCG/ML INJ SQ SCH (08:27)
--- NOTE | 2017-12-26 10:05 | P.PN ---
Subjective Date of Service: 12/26/17 (Hospitalist note) Primary Care Provider: GIGI Balderrama(Dr. Mckinley) Chief Complaint: Fall Subjective: Improving (No new complaints patient appears to be agitated) Review of Systems is unable to be obtained Physical Examination - Vital Signs Temperature: 97.8 F Blood Pressure: 97/68 Pulse: 84 Respirations: 18 Pulse Ox (%): 95 - Physical Exam General: Alert, Other (Little agitated) Respiratory: Clear to auscultation bilaterally Cardiovascular: No edema - Studies Medications List Reviewed: Yes Assessment & Plan - Problems (Diagnosis) (1) Femur fracture Onset Date: 12/21/17 Current Visit: Yes Status: Acute Plan: Patient is 42 years of age admitted with hip fracture her condition is stable still has a urinary catheter as per sister whom she lives with she is going to need a wheelchair then and and a hospital bed to be arranged by the social insurance analyst hemoglobin and is now 8.6 will repeat in the morning possible discharge in the morning Qualifiers: Encounter type: initial encounter Femur location: intertrochanteric Fracture type: closed Fracture alignment: displaced Laterality: right Qualified Code(s): S72.141A - Displaced intertrochanteric fracture of right femur, initial encounter for closed fracture
[2017-12-26] MEDS: SOD FERRIC GLUC COMPLX/SUCROSE 125 MG in NA CHLORIDE 0.9% 100 ML IV SCH (10:29)
[2017-12-26] MEDS: TRAMADOL HCL 50 MG TAB PO PRN (10:31)
--- NOTE | 2017-12-26 11:10 | P.PN ---
Date of Service: 12/26/17 (POD#5) S: PATIENT IN GREAT MOOD, HAPPY AND EXCITED THIS MORNING. SISTER INDICATES PAIN IN LEG NO LONGER ISSUE SINCE GABAPENTIN STARTED. PATIENT HAS BEEN SITTING ON EDGE OF BED FOR 60 MINUTES. O: VSS, PAIN 0,0,0,5,0,0,0,4/10 INTENSITY. NO REACTION TO KIMI'S SIGN , VENOUS DOPPLER STUDIES WERE NEGATIVE. X-RAYS SHOW GOOD POSITION OF IM NAIL AND SCREWS, UNCHANGED. OBLIQUE PELVIS VIEW SHOWS A COMMINUTED GREATER TROCHANTERIC FRAGMENT TILTED POSTERIORLY WHICH WOULD POSSIBLY BE RELATED TO NEUROGENIC PAIN. A: PATIENT MAKING GOOD PROGRESS TODAY. OK FROM ORTHO STANDPOINT FOR DISCHARGE. FAMILY EXPECTING HOSPITAL BED TO BE DELIVERED TOMORROW DISCHARGE CONFIRMED. P: CHANGE AQUACEL BANDAGE PRIOR TO DISCHARGE. HOME HEALTH, IF INVOLVED, TO CHANGE BANDAGE AGAIN IN 5 DAYS. FAMILY HAS LEARNED TECHNIQUES FOR TRANSFERS TO [facility] TOE TOUCH ONLY TO BE CONTINUED. F/U MY OFFICE IN 7-10 DAYS FOR HAMIDA OUT. NORCO 5/325 1 P.O. Q 4-6 HRS. PRN PAIN#30.
[2017-12-26] MEDS: ENOXAPARIN 40 MG/0.4 ML SQ SCH (15:15)
[2017-12-27] MEDS: HYDROCODONE/APAP 5/325 MG TAB PO PRN ×2 (05:33→13:14)
[2017-12-27 06:08] LABS: Hematocrit 26.3 % (36.0-45.0); MCH 31.5 pg (27.0-35.0); MPV 7.5 fL (7.6-11.3); RBC Red Blood Cell Count 2.71 M/uL (3.86-4.86)
[2017-12-27 06:26] LABS: BUN Blood Urea Nitrogen 9 mg/dL (6-20); Bicarbonate 30 mEq/L (21-31); Glucose Level 94 mg/dL (65-120); Magnesium 1.8 mg/dL (1.8-2.5); Potassium 4.3 mEq/L (3.6-5.0); Sodium Level 139 mEq/L (135-145)
[2017-12-27] MEDS: MAGNESIUM SULFATE 1 gm IVPB 1 GM/100 ML BAG IV ONE ×2 (07:30→09:27)
[2017-12-27] MEDS: SOD FERRIC GLUC COMPLX/SUCROSE 125 MG in NA CHLORIDE 0.9% 100 ML IV SCH (09:25)
[2017-12-27] MEDS: DOCUSATE NA 100 MG CAP PO SCH (09:26)
[2017-12-27] MEDS: VITAMIN D 5,000 UNIT CAP PO SCH (09:26)
[2017-12-27] MEDS: CYANOCOBALAMIN 1000MCG/ML INJ SQ SCH (09:26)
[2017-12-27] MEDS: GABAPENTIN 300 MG CAP PO SCH ×2 (09:26→13:13)
[2017-12-27] MEDS: ENOXAPARIN 40 MG/0.4 ML SQ SCH (17:51)
--- NOTE | 2017-12-28 09:36 | DS ---
Date of Discharge: 12/27/2017 Consultants: 1.Ki Barreto MD with Orthopedics. 2.Mauricio Mckinley DO with Nephrology. Procedures: On 12/21/2017, right proximal femur fracture, comminuted, procedure intramedullary nail fixation, right hip, proximal femur. Admitting Diagnoses: 1.Right femur fracture, comminuted, intertrochanteric, initial encounter. 2.Cerebral palsy, chronic. 3.Mental retardation, chronic. 4.Dehydration, acute. 5.Obesity, body mass index of 34.6. Discharge Diagnoses: 1.Right femur fracture, comminuted, intertrochanteric, status post open reduction and internal fixat ion, initial encounter. 2.Cerebral palsy, chronic. 3.Intellectual disability. The patient is fully dependent on her sister. 4.Acute dehydration, improved with IV fluids. 5.Anemia, likely postoperative due to blood loss. 6.Iron deficiency. We will replace with IV iron and continue p.o. iron. 7.B12 deficiency, replaced. 8.Hypomagnesemia, replaced. 9.Obesity, body mass index of 34.6. Hospital Course: The patient is a 42-year-old female with cerebral palsy and intellectual disability , who is completely dependent on her sister for care, who was brought in after a fall. The patient h ad some pain on the right side, found to have a femur fracture, comminuted, intertrochanteric involvi ng the lesser and greater trochanter. Dr. Barreto was consulted and the patient underwent procedure a s mentioned above, ORIF with intramedullary nail fixation. The patient tolerated the procedure well. The patient also had a Doppler venous done to rule out DVT, which was negative. The patient did patel ve significant amount of pain from her hip surgery. The patient's pain medications were adjusted. S he was placed on gabapentin, which improved the pain. She did have some mild electrolyte abnormaliti es, which were corrected. She did develop some postoperative anemia and she was started on IV iron a s her anemia panel showed iron deficiency. She also had low vitamin B12 levels and received replacem ent. The patient continued physical therapy at the hospital. The patient unable to be placed into r ab due to her intellectual disability, inability to follow directions well and live independently. Therefore, the patient will be going home with her sister with home PT with pain medications in the short term. The patient was then discharged home with home health care in a fair condition. Activity: Restrictions as per Orthopedics, toe-touch only, assist with transfers. Followup: Follow up with primary care physician in 2-3 days. Follow up with orthopedic surgeon, Dr. Barreto in 1 week. Return to ER for worsening condition. Wound care instructions as per Dr. Barreto. She will need a bandage change in 5 days. Diet: Calorie-restricted diet. Medications: As per medication reconciliation list. No driving or operating heavy machinery while on narcotics. Total time spent discharging the patient was 37 minutes. Discharge Physical Examination: General: Awake, alert, oriented, in some mild distress due to pain, obese female. CV: S1 and S2. No murmurs. Respiratory: Moving air well bilaterally. No wheezing. Abdomen: Soft, nontender, nondistended. Positive bowel sounds. Extremities: No clubbing, cyanosis, or edema. Musculoskeletal: Right hip incision site is clean, dry, intact. Neuro: Nonfocal. SA/MODL Voice ID: [id number] Report ID: [id number]
== END 2017-12-27 21:37 | disposition home health service (06) | DRG 481 ==
LOC: ER 16:30 → ERHOLD 18:01 → 4TH 19:46
PROVIDERS: ADMIT Family Medicine; ATTEND Family Medicine
PROC: 0QS636Z Reposition Right Upper Femur with Intramedullary Internal Fixation Device, Percutaneous Approach (ICD-10-PCS; principal; 2017-12-21 13:30)
DX: S72.141A Displaced intertrochanteric fracture of right femur, initial encounter for closed fracture (principal); D62 Acute posthemorrhagic anemia; W19.XXXA Unspecified fall, initial encounter; G80.9 Cerebral palsy, unspecified; F79 Unspecified intellectual disabilities; E86.0 Dehydration; D64.9 Anemia, unspecified; E83.42 Hypomagnesemia; I95.89 Other hypotension; E66.9 Obesity, unspecified; E53.8 Deficiency of other specified B group vitamins; Z68.34 Body mass index [BMI] 34.0-34.9, adult
CPT/HCPCS: 36415; 71045; 72100; 72170; 73521; 73530; 80048; 81003; 81015; 82607; 82728; 82746; 83540; 83735; 84439; 84443; 84466; 84703; 85014; 85018; 85025; 85027; 85610; 85730; 86850; 86900; 86901; 87086; 87088; 93970; 96374; 96375; 97163; 99285; J0690; J1650; J2175; J2250; J2370; J2405; J2916; J3010; J3420; J3475; J7030

== ENCOUNTER 2019-03-18 20:34 | Emergency (ER) | payer OTHER ==
--- OUTSIDE RECORDS SUMMARY | 2019-03-18 20:36 | XMS REPORT | Clinical Summary ---
:1975 Author Organization [facility] Address [address] [place] [id number] Care Team Providers Name Role Phone Unavailable Primary Care Provider Unavailable Allergies No Known Allergies Medications No known medications Active Problems Problem Noted Date Abnormal EKG 09/22/2017 Encounters Date Type Specialty Care Team Description 09/22/2018 Office Visit Cardiology Sony Ham Abnormal EKG ( Primary Dx) MD ([place]) after 03/17/2018 Family History Medical History Relation Name Comments [...] Assigned at Date Recorded Not on file Job Start Date Occupation Industry Not on file Not on file Not on file Travel History Travel Start Travel End No recent travel history available. Last Filed Vital Signs Vital Sign Reading Time Taken Blood Pressure 139/83 09/22/2018 12:00 PM [employer] Pulse 76 09/22/2018 12:00 PM [employer] Temperature - - Respiratory Rate - - Oxygen Saturation 95% 09/22/2018 12:00 PM [employer] Inhaled Oxygen Concentration - - Weight 81.6 kg (180 lb) 09/22/2018 12:00 PM [employer] Height 160 cm (5' 3") 09/22/2018 12:00 PM [employer] Body Mass Index 31.89 09/22/2018 12:00 PM [employer] Plan of Treatment Health Maintenance Due Date Last Done Comments INFLUENZA VACCINE 06/13/2018 Procedures Procedure Name Priority Date/Time Associated Diagnosis Comments ECG 12-LEAD Routine 09/22/2018 12:28 PM Abnormal EKG Results for this [employer] procedure are in the results section. after 03/17/2018 Results ECG 12 lead (09/22/2018 12:28 PM [employer]) Impressions Performed At Normal sinus rhythm. Minimal voltage criteria for LVH. Narrative Performed At after 03/17/2018 Insurance Payer Benefit Plan / Group Subscriber ID Type Phone Address MEDICARE MEDICARE A B xxxxxxxxxxx Medicare MEDICAID MEDICAID OF [place] xxxxxxxxx Medicaid
--- NOTE | 2019-03-18 22:11 | ER ---
Nurse's Notes [facility] Name: Glendy Pierson Age: 43 yrs Sex: Female : 1975 Arrival Date: 03/18/2019 Time: 20:39 Bed 17 Private MD: Diagnosis: Fracture of unspecified phalanx of left index finger-proximal aspect of middle phalanx Presentation: 03/18 20:39 Presenting complaint: Sister states that she wont use her left hand like normal today, la1 concerned with injury to hand. Transition of care: patient was not received from another setting of care. Onset of symptoms was March 18, 2019. Risk Assessment: Do you want to hurt yourself or someone else? Patient reports no desire to harm self or others. Initial Sepsis Screen: Does the patient meet any 2 criteria? No. Patient's initial sepsis screen is negative. Does the patient have a suspected source of infection? No. Patient's initial sepsis screen is negative. Care prior to arrival: None. 20:39 Method Of Arrival: Ambulatory la1 20:39 Acuity: MADYSON 4 la1 Historical: - Allergies: 20:40 No Known Allergies; la1 - PMHx: 20:40 Cerebral Palsy; dermatitis; mental retardation; la1 - Immunization history:: Adult Immunizations up to date. - Social history:: Smoking status: Patient/guardian denies using tobacco. - Ebola Screening: : No symptoms or risks identified at this time. Screenin:47 Abuse screen: Denies threats or abuse. Denies injuries from another. Nutritional cc3 screening: No deficits noted. Tuberculosis screening: No symptoms or risk factors identified. Fall Risk Ambulatory Aid- None/Bed Rest/Nurse Assist (0 pts). Gait- Normal/Bed Rest/Wheelchair (0 pts) Mental Status- Oriented to own ability (0 pts). Assessment: 20:47 General: Appears in no apparent distress. comfortable, Behavior is calm, cooperative, cc3 appropriate for age. Pain: Complains of pain in left hand and left index finger. Neuro: Level of Consciousness is awake, alert, obeys commands, Oriented to person. Cardiovascular: Denies chest pain, Patient's skin is warm and dry. Respiratory: Airway is patent Respiratory effort is even, unlabored, Respiratory pattern is regular, symmetrical. GI: Abdomen is round obese. : No signs and/or symptoms were reported regarding the genitourinary system. EENT: No signs and/or symptoms were reported regarding the EENT system. Derm: Skin is intact, is healthy with good turgor, Skin is pink, warm \T\ dry. normal, redness to left hand. Musculoskeletal: Range of motion: limited in left hand. 21:30 Reassessment: Patient appears in no apparent distress at this time. Patient and/or cc3 family updated on plan of care and expected duration. Pain level reassessed. 22:40 Reassessment: Patient appears in no apparent distress at this time. Patient and/or cc3 family updated on plan of care and expected duration. Pain level reassessed. GIGI Vasquez put splint on the patient's hand and discharged the patient home, no prescription given. No IV cannula in situ. Patient left ER vitally stable and ambulatory with her sister. No valuables left in the patient's room. Patient states feeling better. Vital Signs: 20:42 Pulse 110; Resp 18; Temp 97.4; Pulse Ox 100% on R/A; Weight 86.18 kg; la1 21:15 BP 140 / 95; Pulse 96; Resp 19 S; Pulse Ox 99% on R/A; cc3 22:18 BP 137 / 89; Pulse 95; Resp 19 S; Pulse Ox 99% on R/A; cc3 20:42 Unable to obtain blood pressure do to pt cooperation la1 ED Course: 20:39 Patient arrived in ED. la1 20:40 Triage completed. la1 20:40 Arm band placed on left wrist. la1 20:47 Barbra Carlisle is Primary Nurse. cc3 20:47 Patient has correct armband on for positive identification. Bed in low position. Call cc3 light in reach. Side rails up X 1. Adult w/ patient. Pulse ox on. NIBP on. 20:58 Elpidio Marie MD is Attending Physician. pkl 21:05 Juventino Vasquez NP is PHCP. pm1 21:05 Elpidio Marie MD is Attending Physician. pm1 22:09 Israel Puentes MD is Referral Physician. pm1 22:38 Hand Left 3 View XRAY In Process Unspecified. EDMS 22:40 No provider procedures requiring assistance completed. Patient did not have IV access cc3 during this emergency room visit. Administered Medications: No medications were administered Outcome: 22:10 Discharge ordered by MD. pm1 22:40 Discharged to home ambulatory, with family. cc3 22:40 Condition: stable 22:40 Discharge instructions given to family, Instructed on discharge instructions, follow up and referral plans. Demonstrated understanding of instructions, follow-up care, splint care. 22:45 Patient left the ED. cc3 Signatures: Dispatcher [employer] EDMS Elpidio Marie MD MD pkl Attema, Lee RN RN la1 Juventino Vasquez, ATTENDING PATHOLOGIST ATTENDING PATHOLOGIST pm1 Barbra Carlisle cc3 Corrections: (The following items were deleted from the chart) 03/19 01:03/18 20:47 Neuro: Level of Consciousness is awake, alert, obeys commands, Oriented to cc3 person, cc3 03/19 01:07 07 22:40 Reassessment: Patient appears in no apparent distress at this time. Patient cc3 and/or family updated on plan of care and expected duration. Pain level reassessed. GIGI Vasquez put splint on the patient's hand and discharged the patient home, no prescription given. No IV cannula in situ. Patient left ER vitally stable and ambulatory with her sister. Patient states feeling better. Patient states symptoms have improved. cc3
--- NOTE | 2019-03-18 22:11 | EDPHYS ---
Physician Documentation [facility] Name: Glendy Pierson Age: 43 yrs Sex: Female : 1975 Arrival Date: 03/18/2019 Time: 20:39 Bed 17 Private MD: ED Physician Elpidio Marie HPI: 03/18 21:10 This 43 yrs old Female presents to ER via Ambulatory with complaints of Left pm1 Hand Pain. 21:10 The patient or guardian reports pain. The complaints affect the left index finger. pm1 Context: The problem was sustained at an unknown location, resulted from an unknown cause. Onset: The symptoms/episode began/occurred today. Modifying factors: The symptoms are alleviated by nothing, the symptoms are aggravated by palpation to left index finger. Associated signs and symptoms: Pertinent negatives: cyanosis distally, decreased sensation distally, fever, numbness distally, tingling distally. The patient has not experienced similar symptoms in the past. The patient has not recently seen a physician. Historical: - Allergies: 20:40 No Known Allergies; la1 - PMHx: 20:40 Cerebral Palsy; dermatitis; mental retardation; la1 - Immunization history:: Adult Immunizations up to date. - Social history:: Smoking status: Patient/guardian denies using tobacco. - Ebola Screening: : No symptoms or risks identified at this time. ROS: 21:10 Constitutional: Negative for fever, chills, and weight loss, Eyes: Negative for injury, pm1 pain, redness, and discharge, ENT: Negative for injury, pain, and discharge, Neck: Negative for injury, pain, and swelling, Cardiovascular: Negative for chest pain, palpitations, and edema, Respiratory: Negative for shortness of breath, cough, wheezing, and pleuritic chest pain, Abdomen/GI: Negative for abdominal pain, nausea, vomiting, diarrhea, and constipation, Back: Negative for injury and pain. 21:10 Skin: Negative for injury, rash, and discoloration, Neuro: Negative for headache, weakness, numbness, tingling, and seizure. 21:10 MS/extremity: Positive for pain, of the left index finger, bruising, Negative for decreased range of motion, deformity. Exam: 21:10 Constitutional: This is a well developed, well nourished patient who is awake, alert, pm1 and in no acute distress. Head/Face: Normocephalic, atraumatic. Neck: Trachea midline, no thyromegaly or masses palpated, and no cervical lymphadenopathy. Supple, full range of motion without nuchal rigidity, or vertebral point tenderness. No Meningismus. Chest/axilla: Normal chest wall appearance and motion. Nontender with no deformity. No lesions are appreciated. Cardiovascular: Regular rate and rhythm with a normal S1 and S2. No gallops, murmurs, or rubs. Normal PMI, no JVD. No pulse deficits. Respiratory: Lungs have equal breath sounds bilaterally, clear to auscultation and percussion. No rales, rhonchi or wheezes noted. No increased work of breathing, no retractions or nasal flaring. Back: No spinal tenderness. No costovertebral tenderness. Full range of motion. 21:10 Skin: Appearance: normal except for affected area, bruising to left index finger. 21:10 Neuro: Orientation: is normal, Motor: is normal, moves all fours, Sensation: is normal, no obvious gross deficits. Vital Signs: 20:42 Pulse 110; Resp 18; Temp 97.4; Pulse Ox 100% on R/A; Weight 86.18 kg; la1 21:15 BP 140 / 95; Pulse 96; Resp 19 S; Pulse Ox 99% on R/A; cc3 22:18 BP 137 / 89; Pulse 95; Resp 19 S; Pulse Ox 99% on R/A; cc3 20:42 Unable to obtain blood pressure do to pt cooperation la1 Procedures: 22:21 Splinting: Splint applied to left index finger using finger splint, applied by myself. pm1 Examined by me, post splint application: neurovascular intact, Patient tolerated well. MDM: 21:14 Data reviewed: vital signs. Data interpreted: Pulse oximetry: on room air is 100 %. pm1 Interpretation: normal. 21:52 ED course: Pending hand xray. pm1 21:54 Patient medically screened. pm1 22:08 Counseling: I had a detailed discussion with the patient and/or guardian regarding: the pm1 historical points, exam findings, and any diagnostic results supporting the discharge/admit diagnosis, radiology results, the need for outpatient follow up, for definitive care, a hand specialist, to return to the emergency department if symptoms worsen or persist or if there are any questions or concerns that arise at home. 03/18 21:09 Order name: Hand Left 3 View XRAY pm1 03/18 21:58 Order name: Finger Splint; Complete Time: 22:45 pm1 Administered Medications: No medications were administered Disposition: 03/19 01:33 Co-signature as Attending Physician, Elpidio Marie MD. [facility] Disposition: 03/18/19 22:10 Discharged to Home. Impression: Fracture of unspecified phalanx of left index finger - proximal aspect of middle phalanx. - Condition is Stable. - Discharge Instructions: Cast or Splint Care, Adult, Finger Fracture. - Medication Reconciliation Form, Thank You Letter, Antibiotic Education, Prescription Opioid Use form. - Follow up: Emergency Department; When: As needed; Reason: Worsening of condition. Follow up: Israel Puentes; When: 2 - 3 days; Reason: Recheck today's complaints, Continuance of care, Re-evaluation by your physician. - Problem is new. - Symptoms have improved. Signatures: Dispatcher [employer] EDLA Elpidio Marie MD MD [facility] Joe Story RN RN la1 Juventino Vasquez, MANAGER DISH MANAGER DISH pm1 Babrra Carlisle cc3 Corrections: (The following items were deleted from the chart) 03/18 22:45 22:10 03/18/2019 22:10 Discharged to Home. Impression: Fracture of unspecified phalanx cc3 of left index finger - proximal aspect of middle phalanx. Condition is Stable. Discharge Instructions: Cast or Splint Care, Adult, Hand Contusion. Forms are Medication Reconciliation Form, Thank You Letter, Antibiotic Education, Prescription Opioid Use. Follow up: Emergency Department; When: As needed; Reason: Worsening of condition. Follow up: Israel Puentes; When: 2 - 3 days; Reason: Recheck today's complaints, Continuance of care, Re-evaluation by your physician. Problem is new. Symptoms have improved. pm1
--- NOTE | 2019-03-19 08:27 | RAD REPORT ---
EXAM DESCRIPTION: RAD - Hand Left 3 View - 03/18/2019 10:38 pm CLINICAL HISTORY: Hand pain, pain left index finger, unknown trauma history COMPARISON: None. FINDINGS: A nondisplaced fracture is present at the base of the second middle phalanx. Fracture line s extend to the articular surface. No pathologic bone process. The second proximal and distal phalang es are negative. The remaining digits are negative as well. No carpal or metacarpal acute finding. No foreign body or other soft tissue abnormality. IMPRESSION: Nondisplaced, nonangulated fracture involving the base of the left second middle phalanx .
== END 2019-03-18 22:45 | disposition home or self-care (01) ==
LOC: ER 20:34
DX: S62.613A Displaced fracture of proximal phalanx of left middle finger, initial encounter for closed fracture (principal); G80.9 Cerebral palsy, unspecified
CPT/HCPCS: 99283

== ENCOUNTER → 2023-11-22 | Emergency (ER) | payer OTHER ==
--- NOTE | 2023-11-22 03:19 | ER ---
Nurse's Notes [facility] Name: Glendy Pierson Age: 48 yrs Sex: Female : 1975 Arrival Date: 11/22/2023 Time: 00:35 Bed 11 Private MD: Diagnosis: Pain in right wrist Presentation: 11/21 01:05 Chief complaint: Patient states: right wrist not able to use. Coronavirus screen: At vc1 this time, the client does not indicate any symptoms associated with coronavirus-19. Ebola Screen: Patient negative for fever greater than or equal to 101.5 degrees Fahrenheit, and additional compatible Ebola Virus Disease symptoms Patient denies exposure to infectious person. Patient denies travel to an Ebola-affected area in the 21 days before illness onset. No symptoms or risks identified at this time. Initial Sepsis Screen: Does the patient meet any 2 criteria? No. Patient's initial sepsis screen is negative. Does the patient have a suspected source of infection? No. Patient's initial sepsis screen is negative. Risk Assessment: Do you want to hurt yourself or someone else? Patient reports no desire to harm self or others. Onset of symptoms was November 22, 2023. 01:05 Method Of Arrival: Ambulatory vc1 01:05 Acuity: MADYSON 4 vc1 Triage Assessment: 01:15 General: Appears in no apparent distress. uncomfortable, Behavior is MR patient. Pain: vc1 Unable to use pain scale. Does not appear to understand pain scale. mother states she does not seem to be any pain. EENT: No deficits noted. No signs and/or symptoms were reported regarding the EENT system. Neuro: Level of Consciousness is awake, alert, obeys commands, Oriented to. Cardiovascular: No deficits noted. Respiratory: Airway is patent Respiratory effort is even, unlabored, Respiratory pattern is regular, symmetrical, Breath sounds are clear bilaterally. GI: No deficits noted. No signs and/or symptoms were reported involving the gastrointestinal system. : No deficits noted. No signs and/or symptoms were reported regarding the genitourinary system. Derm: No deficits noted. No signs and/or symptoms reported regarding the dermatologic system. Musculoskeletal: Range of motion: limited in right wrist. 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 - Social history:: Smoking status: Patient denies any tobacco usage or history of. Screenin:00 [facility] ED Fall Risk Assessment (Adult) History of falling in the last 3 months, vc1 including since admission No falls in past 3 months (0 pts) Confusion or Disorientation No (0 pts) Intoxicated or Sedated No (0 pts) Impaired Gait No (0 pts) Mobility Assist Device Used No (0 pt) Altered Elimination No (0 pt) Score/Fall Risk Level 0 - 2 = Low Risk Oriented to surroundings, Maintained a safe environment, Educated pt \T\ family on fall prevention, incl call for assistance when getting out of bed. 01:08 Abuse screen: Denies threats or abuse. Nutritional screening: No deficits noted. vc1 Tuberculosis screening: No symptoms or risk factors identified. Assessment: 02:00 General: see triage assessment. vc1 03:46 Reassessment: Patient appears in no apparent distress at this time. No changes from vc1 previously documented assessment. Patient and/or family updated on plan of care and expected duration. Pain level reassessed. Vital Signs: 01:05 Weight 77.11 kg; vc1 01:07 Temp 96.9; vc1 01:12 BP 98 / 86; Pulse 65; Resp 14; Temp 96.9; Pulse Ox 100% ; vc1 03:30 BP 102 / 84; Pulse 66; Resp 14; Temp 97.1; Pulse Ox 100% ; vc1 ED Course: 00:43 Patient arrived in ED. gm2 00:43 Juno Johnson DO is Attending Physician. ms3 01:06 Triage completed. vc1 01:07 Arm band placed on left wrist. vc1 01:55 Wrist Right 3 View XRAY In Process Unspecified. EDMS 02:15 Patient has correct armband on for positive identification. Bed in low position. Call vc1 light in reach. Adult w/ patient. 03:40 No provider procedures requiring assistance completed. Patient did not have IV access vc1 during this emergency room visit. 03:41 Provided Education on: take ibuprofen for any inflammation, follow up with PCP. vc1 Administered Medications: No medications were administered Medication: 01:08 VIS not applicable for this client. vc1 Outcome: 03:18 Discharge ordered by . ms3 03:40 Discharged to home ambulatory, with family, vc1 03:40 Condition: good 03:40 Discharge instructions given to family, Instructed on discharge instructions, follow up and referral plans. Demonstrated understanding of instructions, follow-up care, 03:48 Patient left the ED. vc1 Signatures: Dispatcher [employer] EDMS Juno Johnson DO DO ms3 Marycruz Felipe RN RN vc1 Lesley Llanos 2
--- NOTE | 2023-11-22 03:19 | EDPHYS ---
Physician Documentation [facility] Name: Glendy Pierson Age: 48 yrs Sex: Female : 1975 Arrival Date: 11/22/2023 Time: 00:35 Bed 11 Private MD: ED Physician Juno Johnson HPI: 11/21 02:11 This 48 yrs old Female presents to ER via Ambulatory with complaints of Hand Swelling. ms3 02:11 48-year-old female with past medical history of cerebral palsy, dermatitis, mental ms3 retardation presents to the emergency department after patient's mother noticed patient not using right wrist. She is unsure if patient had injury to the wrist. Patient's mother denies fevers or chills. 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 - Social history:: Smoking status: Patient denies any tobacco usage or history of. ROS: 02:11 Constitutional: Negative for fever, and chills. Neck: Negative for injury, pain, and ms3 swelling, Cardiovascular: Negative for chest pain, and palpitations. Respiratory: Negative for shortness of breath, cough, wheezing, and pleuritic chest pain, Abdomen/GI: Negative for abdominal pain, nausea, vomiting, diarrhea, and constipation, 02:11 Skin: Negative for injury, rash, and discoloration, 02:11 MS/extremity: Positive for Last movement of right wrist, Exam: 02:11 Constitutional: This is a well developed, well nourished patient who is awake, alert, ms3 and in no acute distress. Cardiovascular: Regular rate and rhythm with a normal S1 and S2. No gallops, murmurs, or rubs. Normal PMI, no JVD. No pulse deficits. Respiratory: Lungs have equal breath sounds bilaterally, clear to auscultation and percussion. No rales, rhonchi or wheezes noted. No increased work of breathing, no retractions or nasal flaring. Abdomen/GI: Soft, non-tender, with normal bowel sounds. No distension or tympany. No guarding or rebound. No evidence of tenderness throughout. 02:11 Musculoskeletal/extremity: Extremities: noted in the Right wrist: decreased ROM, Vital Signs: 01:05 Weight 77.11 kg; vc1 01:07 Temp 96.9; vc1 01:12 BP 98 / 86; Pulse 65; Resp 14; Temp 96.9; Pulse Ox 100% ; vc1 03:30 BP 102 / 84; Pulse 66; Resp 14; Temp 97.1; Pulse Ox 100% ; vc1 MDM: 01:11 Patient medically screened. ms3 02:11 Differential diagnosis: closed fracture, contusion, tendonitis. ms3 03:40 Data reviewed: vital signs, nurses notes, radiologic studies, and as a result, I will ms3 discharge patient. Independent interpretation of the following test(s) in the Emergency Department X-Ray: My interpretation is Right wrist x-ray images reviewed by me do not reveal fracture. Historians other than the Patient: Parent: Patient's mother. Counseling: I had a detailed discussion with the patient and/or guardian regarding the historical points, exam findings, and any diagnostic results supporting the discharge/admit diagnosis, radiology results, the need for outpatient follow up, to return to the emergency department if symptoms worsen or persist or if there are any questions or concerns that arise at home. Special discussion: I discussed with the patient/guardian in detail that at this point there is no indication for admission to the hospital. It is understood, however, that if the symptoms persist or worsen the patient needs to return immediately for re-evaluation. ED course: Patient placed in prefabricated wrist splint. Patient to follow-up with primary care physician in 2 to 3 days. Patient's mother understands and agrees with plan. All questions were answered. Return precautions discussed include worsening symptoms, erythema, fevers, or any other concerns. 11/21 01:11 Order name: Wrist Right 3 View XRAY ms3 11/21 01:11 Order name: Wrist Splint; Complete Time: 03:20 ms3 Administered Medications: No medications were administered Disposition Summary: 11/22/23 03:18 Discharge Ordered Notes: Location: Home ms3 Condition: Stable ms3 Diagnosis - Pain in right wrist ms3 Followup: ms3 - With: Private Physician - When: 2 - 3 days - Reason: Recheck today's complaints Discharge Instructions: - Discharge Summary Sheet ms3 - Joint Pain ms3 - Wrist Pain, Adult ms3 Forms: - Medication Reconciliation Form ms3 - Thank You Letter ms3 - Antibiotic Education ms3 - Prescription Opioid Use ms3 - Patient Portal Instructions ms3 - Leadership Thank You Letter ms3 Signatures: Dispatcher [employer] Juno Lieberman, DO ms3 Marycruz Felipe RN RN vc1
[2023-11-22 04:12] VITALS: BP 102/84; TEMP 97.1; O2SAT 100
--- NOTE | 2023-11-22 13:46 | RAD REPORT ---
EXAM DESCRIPTION: XR WRIST 3 OR MORE VIEWS RIGHT CLINICAL HISTORY: SWELLING COMPARISON: None. TECHNIQUE: XR WRIST 3 OR MORE VIEWS RIGHT 11/22/2023 1:11 AM CDT FINDINGS: There is no fracture. Joint spaces are preserved. Soft tissues are unremarkable. IMPRESSION: No acute osseous findings. Electronically signed by: Manav Chew MD 11/22/2023 02:29 AM CDT Due to temporary technical issues with the PACS/Fluency reporting system, reports are being signed by the in house radiologist without review as a courtesy to ensure prompt reporting. The interpreting r adiologist is fully responsible for the content of the report.
== END ==
LOC: ER 00:35
DX: M25.531 Pain in right wrist (principal); G80.9 Cerebral palsy, unspecified
CPT/HCPCS: 99283